=== PATIENT | female | born 1950 | race Caucasian/White ===

== ENCOUNTER → 2020-11-21 09:54 | Outpatient (CLI) | payer MEDICARE, OTHER, SELFPAY ==
--- NOTE | ~2020-11-21 | MM_ITS ---
EXAMINATION: MM screening [facility] BI w maryann HISTORY: Screening mammogram TECHNIQUE: Craniocaudal and mediolateral oblique 3-D tomosynthesis images were obtained and synthetic 2-D images were generated. CAD analysis was submitted and interpreted. COMPARISON: 11/16/2019, 10/13/2018, 10/11/2017 bilateral digital screening mammogram examinations BREAST PARENCHYMAL COMPOSITION: The breasts are almost entirely fatty. FINDINGS: There is no evidence of suspicious mass, calcification, or architectural distortion to sugg est malignancy in either breast. There has been no suspicious interval change. IMPRESSION: 1. No mammographic evidence of malignancy. 2. Recommend routine screening mammography in one year. BI-RADS Category 1: Negative Reviewed, dictated and finalized at location A. GE OPERATOR SLIP
== END ==
PROVIDERS: PCP Emergency Medicine; Visit Provider Emergency Medicine
DX: Z12.31 Encounter for screening mammogram for malignant neoplasm of breast (principal)
CPT/HCPCS: 77063; 77067

== ENCOUNTER → 2022-01-17 14:12 | Outpatient (CLI) | payer MEDICARE, OTHER, SELFPAY ==
--- NOTE | ~2022-01-17 | MM_ITS ---
EXAMINATION: MM screening de[facility] BI w maryann HISTORY: Screening TECHNIQUE: Craniocaudal and mediolateral oblique 3-D tomosynthesis images were obtained and synthetic 2-D images were generated. CAD analysis was submitted and interpreted. COMPARISON: Comparison to multiple prior studies sequentially, with oldest reviewed study dated 09/02. BREAST PARENCHYMAL COMPOSITION: There are scattered areas of fibroglandular density. FINDINGS: There is no evidence of suspicious mass, calcification, or architectural distortion to sugg est malignancy in either breast. There has been no suspicious interval change. IMPRESSION: 1. No mammographic evidence of malignancy. 2. Recommend routine screening mammography in one year. BI-RADS Category 1: Negative Reviewed, dictated and finalized at location A. N CLEANER
== END ==
PROVIDERS: PCP Emergency Medicine; Visit Provider Emergency Medicine
DX: Z12.31 Encounter for screening mammogram for malignant neoplasm of breast (principal)
CPT/HCPCS: 77063; 77067

== ENCOUNTER → 2023-01-18 10:00 | Outpatient (CLI) | payer MEDICARE, OTHER, SELFPAY ==
--- NOTE | ~2023-01-18 | MM_ITS ---
EXAMINATION: MM screening deirdre BI w maryann HISTORY: Screening mammogram TECHNIQUE: Craniocaudal and mediolateral oblique 3-D tomosynthesis images were obtained and synthetic 2-D images were generated. CAD analysis was submitted and interpreted. COMPARISON: January 17, 2022, November 21, 2020, November 16, 2019 bilateral screening mammogram exa minations BREAST PARENCHYMAL COMPOSITION: The breasts are almost entirely fatty. FINDINGS: There is no evidence of suspicious mass, calcification, or architectural distortion to sugg est malignancy in either breast. There has been no suspicious interval change. IMPRESSION: 1. No mammographic evidence of malignancy. 2. Recommend routine screening mammography in one year. BI-RADS Category 1: Negative Reviewed, dictated and finalized at location A. ITY ASSISTANT
== END ==
PROVIDERS: PCP Emergency Medicine; Visit Provider Emergency Medicine
DX: Z12.31 Encounter for screening mammogram for malignant neoplasm of breast (principal)
CPT/HCPCS: 77063; 77067

== ENCOUNTER → 2024-01-21 10:53 | Outpatient (CLI) | payer MEDICARE, OTHER, SELFPAY ==
--- NOTE | ~2024-01-21 | MM_ITS ---
EXAMINATION: MM screening deirdre BI w maryann HISTORY: Screening TECHNIQUE: Craniocaudal and mediolateral oblique 3-D tomosynthesis images were obtained and synthetic 2-D images were generated. CAD analysis was submitted and interpreted. COMPARISON: Comparison to multiple prior studies sequentially, with oldest reviewed study dated 10/02. BREAST PARENCHYMAL COMPOSITION: The breasts are almost entirely fatty. FINDINGS: There is no evidence of suspicious mass, calcification, or architectural distortion to sugg est malignancy in either breast. There has been no suspicious interval change. IMPRESSION: 1. No mammographic evidence of malignancy. 2. Recommend routine screening mammography in one year. BI-RADS Category 1: Negative Reviewed, dictated and finalized at location A. GE NURSE
== END ==
PROVIDERS: PCP Emergency Medicine; Visit Provider Emergency Medicine
DX: Z12.31 Encounter for screening mammogram for malignant neoplasm of breast (principal)
CPT/HCPCS: 77063; 77067

== ENCOUNTER 2024-05-28 09:51 | Outpatient (CLI) | payer MEDICARE, OTHER, SELFPAY ==
--- NOTE | ~2024-05-28 | XR_ITS ---
XR shoulder RT min 2V Ordering provider: Dequan Patino MD History: . M25.511 - Pain in right shoulder . Comparison: None. FINDINGS: BONES: No acute fracture or dislocation. JOINT SPACES: The acromioclavicular joint is normal. The glenohumeral joint is normal. SOFT TISSUES: Normal. IMPRESSION: No acute osseous abnormality right shoulder. Reviewed, dictated and finalized at location A.
== END 2024-05-28 09:52 ==
LOC: MICIMG 09:53
PROVIDERS: PCP Emergency Medicine; Visit Provider Emergency Medicine
DX: M25.511 Pain in right shoulder (principal)
CPT/HCPCS: 73030

== ENCOUNTER 2024-07-22 12:44 | Outpatient (CLI) | payer MEDICARE, OTHER, SELFPAY | END 2024-07-22 12:45 | disposition home or self-care (01) | PROVIDERS: PCP Emergency Medicine; Visit Provider Emergency Medicine | DX: H90.3 Sensorineural hearing loss, bilateral (principal) | CPT/HCPCS: 92557; 92567 ==

== ENCOUNTER 2024-08-26 15:26 | Outpatient (CLI) | payer MEDICARE, OTHER, SELFPAY ==
--- NOTE | ~2024-08-26 | US_ITS ---
EXAMINATION: US carotid duplex BI DATE: 08/26/2024 16:29 INDICATION: Vertigo TECHNIQUE: Grayscale, color Doppler, and pulsed Doppler images of the cervical carotid arteries were obtained. The degree of vessel stenosis is placed in one of the following categories: normal, <50%, 5 0-69%, >=70% but less than near-occlusion, near-occlusion, or total occlusion. Note that percent sten osis relative to normal distal artery lumen diameter is indirectly measured from velocity measurement s as described by Adama, et al. Radiology 2003; 229:340-346. COMPARISON: None. FINDINGS: RIGHT: The right common carotid artery (CCA) peak systolic velocity (PSV) is 95 cm/s. The right internal car otid artery (ICA) PSV is 114 cm/s. The right ICA end-diastolic velocity (EDV) is 20 cm/s. The right I CA/CCA PSV ratio is 1.2. Grayscale and color Doppler images yield an estimate of <50% diameter reduct ion from plaque in the ICA. The external carotid artery (ECA) PSV is 267 cm/s. There is antegrade amena w in the right vertebral artery. LEFT: The left CCA PSV is 166 cm/s. The left ICA PSV is 142 cm/s. The left ICA EDV is 14 cm/s. The left ICA /CCA PSV ratio is 0.9. Grayscale and color Doppler images yield an estimate of 50-69% diameter reduct ion from plaque in the ICA. The ECA PSV is 81 cm/s. There is antegrade flow in the left vertebral art maikel. IMPRESSION: 1. <50% stenosis in the right internal carotid artery. 2. 50-69% stenosis in the left internal carotid artery. Reviewed, dictated and finalized at location A.
== END 2024-08-26 15:27 | disposition home or self-care (01) ==
LOC: ANHIMG 15:28
PROVIDERS: PCP Emergency Medicine; Visit Provider Emergency Medicine
DX: R09.89 Other specified symptoms and signs involving the circulatory and respiratory systems (principal); I65.23 Occlusion and stenosis of bilateral carotid arteries
CPT/HCPCS: 93880

== ENCOUNTER 2024-09-18 15:40 | Outpatient (CLI) | payer MEDICARE, OTHER, SELFPAY ==
--- NOTE | ~2024-09-18 | US_ITS ---
US renal BI 09/18/2024 15:58 Procedure: Realtime transabdominal ultrasound of the kidneys and bladder. Indication: Chronic kidney disease stage III Comparison: No prior studies for comparison.8.9 cm and left kidney measures 8.6 cm. There is mild laura ateral hydronephrosis. Bladder within normal limits. Impression: 1: Mild bilateral hydronephrosis. Reviewed, dictated and finalized at location B. Impression: 1: Mild bilateral hydronephrosis.
== END 2024-09-18 15:41 | disposition home or self-care (01) ==
LOC: MICIMG 15:41
PROVIDERS: PCP Internal Medicine Nephrology; Visit Provider Internal Medicine Nephrology
DX: N18.32 Chronic kidney disease, stage 3b (principal)
CPT/HCPCS: 76775

== ENCOUNTER 2024-09-29 09:49 | Outpatient (CLI) | payer MEDICARE, OTHER, SELFPAY ==
[2024-09-29 10:32] LABS: Basophils Absolute Auto 0.1 K/mm3 (0.0-0.1); Basophils Percent Auto 0.8 % (0.2-1.2); Eosinophils Absolute Auto 0.1 K/mm3 (0-0.3); Eosinophils Percent Auto 1.5 % (0-4.4); Hematocrit 29.1 % (37.0-47.0); Immature Granulocyte Absolute 0.01 K/mm3 (0.00-0.031); Immature Granulocyte Percent A 0.1 % (0-0.5); Lymphocytes Absolute Auto 0.74 K/mm3 (0.9-3.2); Lymphocytes Percent Auto 10.4 % (18.3-44.2); Mean Corpuscular HGB Conc 30.9 g/dl (32-36); Mean Corpuscular Hemoglobin 31.3 pg (26-34); Mean Platelet Volume 11.5 fl (7.4-10.4); Monocytes Absolute Auto 0.4 K/mm3 (0.1-0.6); Neutrophils Absolute Auto 5.8 K/mm3 (1.3-6.7); Neutrophils Percent Auto 81.2 % (45.5-73.1); Platelet Count Result 178 k/mm3 (150-375); Red Blood Count 2.88 M/mm3 (4.2-5.4); Red Cell Distribution Width 15.4 % (11.5-14.5); White Blood Count 7.1 K/mm3 (4.5-10.0)
[2024-09-29 11:42] LABS: Iron 45 ug/dL (37-170)
[2024-09-29 11:44] LABS: Alanine Aminotransferase 22 U/L (6-35); Alkaline Phosphatase 149 U/L (38-126); Anion Gap 12 mmol/L (4-12); Aspartate Amino Transferase 43 U/L (14-36); Bilirubin,Total 0.8 mg/dL (0.2-1.3); Blood Urea Nitrogen 33 mg/dL (7-17); Calcium 9.4 mg/dL (8.4-10.2); Carbon Dioxide 20 mmol/L (22-30); Chloride 109 mmol/L (98-107); Estimated Glomerular Filt Rate 31; Glucose 129 mg/dL (65-110); Potassium 4.8 mmol/L (3.4-5.0); Sodium 141 mmol/L (137-145)
[2024-09-29 11:59] LABS: Percent Iron Saturation 12 % (20-50)
[2024-09-29 12:47] LABS: Folic Acid 7.9 ng/mL (2.76->20)
[2024-10-03 13:48] LABS: Methylmalonic Acid 248 nmol/L (69-390)
[2024-10-05 13:04] LABS: Soluble Transferrin Receptor 1.99 mg/L (0.76-1.76)
== END 2024-09-29 09:50 | disposition home or self-care (01) ==
LOC: ANHLAB 09:53
PROVIDERS: PCP Emergency Medicine; Visit Provider Internal Medicine Hematology & Oncology
DX: D64.9 Anemia, unspecified (principal)
CPT/HCPCS: 36415; 80053; 82607; 82728; 82746; 83540; 83550; 83921; 84238; 85025

== ENCOUNTER 2024-10-23 11:00 | Outpatient (RCR) | payer MEDICARE, OTHER, SELFPAY | END 2024-11-04 23:59 | disposition home or self-care (01) | LOC: ANHAUDASC 11:00 | PROVIDERS: PCP Emergency Medicine; Visit Provider Emergency Medicine | DX: Z46.1 Encounter for fitting and adjustment of hearing aid (principal) | CPT/HCPCS: 99199; V5261; V5264 ==

== ENCOUNTER 2025-01-25 10:46 | Outpatient (CLI) | payer MEDICARE, OTHER, SELFPAY ==
--- NOTE | ~2025-01-25 | MM_ITS ---
EXAMINATION: MM screening [facility] BI w maryann HISTORY: Screening mammogram TECHNIQUE: Craniocaudal and mediolateral oblique 3-D tomosynthesis images were obtained and synthetic 2-D images were generated. CAD analysis was submitted and interpreted. COMPARISON: 01/21/2024, 01/18/2023, 01/17/2022 BREAST PARENCHYMAL COMPOSITION:Not Dense. There are scattered areas of fibroglandular density. FINDINGS: No suspicious mass, calcification, or architectural distortion are identified in either delaney ast to suggest malignancy. There has been no suspicious interval change. IMPRESSION: No mammographic evidence of malignancy. Recommend routine screening mammography in one year. BI-RADS Category 1: Negative Reviewed, dictated and finalized at location . RUMENT AND CONTROL TECHNICIAN
== END 2025-01-25 10:47 | disposition home or self-care (01) ==
LOC: MICIMG 10:49
PROVIDERS: PCP Emergency Medicine; Visit Provider Emergency Medicine
DX: Z12.31 Encounter for screening mammogram for malignant neoplasm of breast (principal)
CPT/HCPCS: 77063; 77067

== ENCOUNTER 2025-01-29 13:15 | Outpatient (CLI) | payer MEDICARE, OTHER, SELFPAY ==
[2025-01-29 13:52] LABS: Hematocrit 27.3 % (37.0-47.0); Hemoglobin 8.4 g/dL (12.0-15.0); Mean Corpuscular HGB Conc 30.8 g/dl (32-36); Mean Corpuscular Hemoglobin 30.3 pg (26-34); Mean Corpuscular Volume 98.6 fl (80-100); Mean Platelet Volume 10.9 fl (7.4-10.4); Platelet Count Result 215 k/mm3 (150-375); Red Blood Count 2.77 M/mm3 (4.2-5.4); White Blood Count 8.1 K/mm3 (4.5-10.0)
[2025-01-29 14:13] LABS: Creatinine Urine 153.8 mg/dL; Total Protein Urine Random 11 mg/dL; Ur Ttl Prot Creatinine Ratio 0.07 mg/mg (0-0.20)
[2025-01-29 14:16] LABS: Parathyroid Intact 111.2 pg/mL (14.5-75.2)
[2025-01-29 14:39] LABS: Albumin Level 3.9 g/dL (3.5-5.1); Anion Gap 13 mmol/L (4-12); Blood Urea Nitrogen 23 mg/dL (7-17); Calcium 9.2 mg/dL (8.4-10.2); Carbon Dioxide 20 mmol/L (22-30); Chloride 106 mmol/L (98-107); Estimated Glomerular Filt Rate 37; Glucose 130 mg/dL (65-110); Iron 55 ug/dL (37-170); Phosphorus 3.6 mg/dL (2.5-4.5); Potassium 4.3 mmol/L (3.4-5.0); Sodium 139 mmol/L (137-145)
[2025-01-29 14:46] LABS: Percent Iron Saturation 15 % (20-50)
[2025-01-29 15:46] LABS: Folic Acid 7.9 ng/mL (2.76->20)
== END 2025-01-29 13:16 | disposition home or self-care (01) ==
PROVIDERS: PCP Emergency Medicine; Visit Provider Internal Medicine Nephrology
DX: I12.9 Hypertensive chronic kidney disease with stage 1 through stage 4 chronic kidney disease, or unspecified chronic kidney disease (principal); N18.32 Chronic kidney disease, stage 3b; D64.9 Anemia, unspecified
CPT/HCPCS: 36415; 80069; 82570; 82607; 82728; 82746; 83540; 83550; 83970; 84156; 85027

== ENCOUNTER 2025-02-06 13:09 | Outpatient (CLI) | payer MEDICARE, OTHER, SELFPAY ==
--- NOTE | ~2025-02-06 | XR_ITS ---
Clinical Indication: Chronic kidney disease PA and lateral views of the chest: Comparison: None Findings: Small left pleural effusion and possible minimal right pleural effusion present.. Cardiome diastinal silhouette is within normal limits. There is kyphosis of the thoracic spine with multiple m ild compression deformities of the mid thoracic spine. Impression: Small left pleural effusion and possible minimal right pleural effusion. Kyphosis with multiple mid thoracic spine compression deformities. Reviewed, dictated and finalized at location . Impression: Small left pleural effusion and possible minimal right pleural effusion. Kyphosis with multiple mid thoracic spine compression deformities.
--- OUTSIDE RECORDS SUMMARY | 2025-02-06 13:15 | XMS_ITS | Continuity of Care Document ---
Author Organization [facility] Address [address] [address] [place] [address] Phone Care Team Providers Care Printing Supplies Sales Representative Name Role Phone Cedric Danielle MD Unavailable Unavailable Allergies, Adverse Reactions, Alerts Substance Reaction Status Criticality Sulfa (Sulfonamide Antibiotics) Active No Information Penicillins Active No Information codeine Active No Information Medications Medication Instructions Dosage Effective Dates (start - stop) Status Comments omeprazole 20 mg capsule,delayed release take 1 capsule by oral route every day before a meal 20 MG - Active Norvasc 10 mg tablet take 1 tablet by oral route every day 10 MG - Active lisinopril 40 mg tablet take 1 tablet by oral route every day 40 MG - Active hydrochlorothiazide 12.5 mg tablet take 1 tablet by oral route every day 12.5 MG - Active atenolol 25 mg tablet take 1 tablet by oral route every day 25 MG - Active allopurinol 100 mg tablet take 2 tablet by oral route every day 200 MG - Active Vitamin D2 50,000 unit capsule take 1 capsule by oral route every week - Active Procedures Procedure Date OFFICE/OUTPATIENT VISIT, EST OFFICE/OUTPATIENT VISIT, EST OFFICE/OUTPATIENT VISIT, EST PPPS, initial visit OFFICE/OUTPATIENT VISIT, NEW Advance Directives Directive Yes / No Effective Date File Name No Information Encounters Encounter Description Practice Location Reason(s) For Visit Diagnoses Date Provider Providers Copied on Encounter [facility], [facility] [employer] [facility] [place] [id number], [place] tel:[phone] [facility] No Information 9 Shashi Steele. [address], [place], [place], [address] , [place]. tel:[phone] [facility], [address], [place], [place], [address], [place] tel:[phone] [facility] No Information 9 Shashi Steele. [address], [address], [place], [place], [address] , [place]. tel:[phone] OFFICE/OUTPA TIENT VISIT, [facility], [address], [place], [place], [address], [place] tel:[phone] [facility] glucose (chief complaint) d (chief complaint) renal (chief complaint) LFT (chief complaint) Essential (primary) hypertensionGoutRen al diseaseVitamin D deficiency, unspecifiedHypergly cemiaLiver disease 9 Shashi Steele. [address], [place], [place], [address] , [place]. tel:[phone] Referring Provider: Michele [address] [place], [address]. tel:[phone] OFFICE/OUTPA TIENT VISIT, [facility] ([place], [address], [place], [place], [address], [place] tel:[phone] [facility] HTN (chief complaint) GERD1 (chief complaint) gout1 (chief complaint) renal disease (chief complaint) GoutRenal diseaseEssential (primary) hypertensionLiver diseaseGERD w/o esophagitis 9 Shashi Steele. [address], [address], [place], [place], [address] , [place]. tel:[phone] Referring Provider: Michele [address], [place], [place], [address]. tel:[phone] OFFICE/OUTPA TIENT VISIT, [facility] ([place], [address], [place], [place], [address], tel:[phone] [facility] Medicine HTN (chief complaint) GERD1 (chief complaint) gout1 (chief complaint) renal1 (chief complaint) LFT1 (chief complaint) GERD w/o esophagitisEssentia l (primary) hypertensionGoutLiv er diseaseRenal disease 8 Shashi Steele. [address], [place], [place], [address] , [place]. tel:[phone] Referring Provider: Michele [address], [place], [place], [address]. tel:[phone] OFFICE/OUTPA TIENT VISIT, [facility], [address], [place], [place], [address], tel:[phone] [facility] Physical (chief complaint) Essential (primary) hypertensionGERD w/o esophagitisGoutBody mass index (BMI) 39.0-39.9, adultEncounter for general adult medical exam w abnormal findings 8 Shashi Steele. [address], [place], [place], [address] , [place]. tel:[phone] Referring Provider: Michele Mack [address] [facility], [place], [place], [address]. tel:[phone] Family History Family Member Type Diagnosis Age At Onset Mother Problem (finding) of 70 of CAD (Caus e Of ) Father Problem (finding) unknown CA 45 Brother Problem (finding) DM related issue (Cause Of ) 62 Payers Payer name Insurance type Covered democrat ID Authoriza tion(s) No Information Social History Type Description Quantity Date Captured Comments Sex Female Smoking Status No Information Chief Complaint And Reason For Visit No Information Plan Of Treatment Date Type Action Status Goal Special diet education compl eted Goal Tobacco cessation counseling completed Goal Special diet education compl eted Goal Tobacco cessation counseling completed Goal Special diet education compl eted Goal Tobacco cessation counseling completed Goal Special diet education compl eted Referral Ordered: CT THORAX W/O DYE ordered Referral Ordered: MAMMOGRAM, SCREENING ordered Referral Ordered: DXA BONE DENSITY, AXIAL ordered History Of Present Illness Encounter Date Complaint History Of Prese nt Illness LFT Her LFT is elsi l Hepatitis normal. Pt denies any abd pain or jaundice. Pt has mildly elevated alk phos renal Pt has stage iii renal disease but renal function is stable and actually better than last year. Pt has normal UO d Pt has low D Pt does not want bone density. Pt denies any fx glucose Pt has borderlin e high glucose Pt denies any polyuria, polydipsia renal disease Pt has normal UO . Pt denies any flank pain gout1 Pt has history o f gout Pt takes allopurinol and she has not had any gout attack for several years GERD1 Pt has chronic G ERD. Pt takes omeprazole and doing ok. Pt failed zantac Pt has daily GERD without omeprazole . Pt denies any abd pain or nausea or GBERD while on omeprazole HTN Pt has HTN Pt ta kes norvasc, HCTZ,, lisinopril and atenolol and her BP is stable Pt needs refill HTN Patient has hype rtension. Patient taking lisinopril, amlodipine, hydrochlorothiazide and atenolol. Her blood pressure stable. Patient denies any chest pain or headache. LFT1 Patient has mild ly elevated liver function test. Patient denies any abdominal pain. Patient denies any jaundice. renal1 Patient has mild high glucose with normal A1c and low renal function. Patient has normal urine output. Patient denies any polyuria polydipsia. gout1 Patient has gout . Patient takes allopurinol daily. Patient has not had gout for 2 years. GERD1 Patient has GERD . Patient take omeprazole daily. Patient failed Zantac and that she has daily GERD symptoms without omeprazole. Physical Pt needs annual physical Pt has HTn. Pt takes, lisinopril, HCTZ, Norvasc and also atenolol and her BP is stable. Pt has history of gout. Pt takes allopurinol and she has not had any gout attack for more than one year. Pt also has chronic GERD. Pt takes omeprazole daily. Pt denies any nausea, vomiting and GERD symptoms while on omeprazole. Pt failed zantac. Pt tried without omeprazole but her GERD is too severe without PPI .Pt denies any new complaints Instructions Date Instruction Additional Infor mation Elevate head of bed prior to sle ep. Related to GERD w/o esophagitis Eat smaller meals, n o eating three hours prior to bedtime. Related to GERD w/o esophagitis Avoid provocative fo ods: citrus, alcohol, coffee, chocolate, mints. Related to GERD w/o esophagitis Special diet education Related t o Body mass index (BMI) 38.0-38.9, adult Follow a low sodium diet. Relate d to Essential (primary) hypertension Increase activity. Related to Es sential (primary) hypertension Weight management Related to Gou t Increase physical activity Relat ed to Gout Special diet education Related t o Body mass index (BMI) 38.0-38.9, adult Elevate head of bed prior to sle ep. Related to GERD w/o esophagitis Eat smaller meals, n o eating three hours prior to bedtime. Related to GERD w/o esophagitis Avoid provocative fo ods: citrus, alcohol, coffee, chocolate, mints. Related to GERD w/o esophagitis Special diet education Related t o Body mass index (BMI) 39.0-39.9, adult Follow a low sodium diet. Relate d to Essential (primary) hypertension Special diet education Related t o Body mass index (BMI) 39.0-39.9, adult Increase activity. Related to Es sential (primary) hypertension Assessments Type Assessment Date No Information
--- OUTSIDE RECORDS SUMMARY | 2025-02-06 13:15 | XMS_ITS | Encounter Summary ---
Author Organization [facility] Address [address] [place] [address] Care Team Providers Care Lab Scientist Name Role Phone Dequan Patino MD Primary Care Provider [phone] Encounter Details Date Type Department Care Team (Late st Contact Info) Description 02/05/2025 External Device Data [facility] ABSTRACTION Provider, Abstract NO ADDRESS ON FILE Social History Tobacco Use Types Packs/Day Years Used Date Smoking Tobacco: Former Cigarettes 1 43 Q uit: 09/29/2009 Smokeless Tobacco: Never Alcohol Use Standard Drinks/Week Comments Never 0 (1 standard drink = 0.6 oz pur e alcohol) Comments Unknown Sex and Gender Information Value Date Recorded Sex Assigned at Not on file Legal Sex Female 12:16 PM CDT Gender Identity Not on file Sexual Orientation Not on file documented as of this encounter Plan of Treatment Not on file documented as of this encounter Visit Diagnoses Not on filedocumented in this encounter Care Teams Lab Scientist Relationship Specialty Start Date End Date Dequan Patino MD [address] [place] [address] PCP - General Internal Medicine 09/29/24 documented as of this encounter
--- OUTSIDE RECORDS SUMMARY | 2025-02-06 13:15 | XMS_ITS | Clinical Summary ---
Author Organization [facility] Alirio [facility] Address [address] [place] [address] Care Team Providers Care Sound Art Instructor Name Role Phone Dequan Patino MD Primary Care Provider [phone] Allergies Active Allergy Reactions Criticality Noted Date Comments Codeine Unknown 09/29/2024 Patient does not remeber Nsaids (Non-Steroidal Anti-Inflammatory Drug) Other (See Comments) 09/29/2024 Patient received a shot for gout , cheeks got red and stomach felt like it was on fire Penicillins Rash Low 09/29/2024 Sulphrin Unknown 09/29/2024 Patient is unsure Medications hydrALAZINE (APRESOLINE) 50 mg tablet Take 50 mg by mouth 2 times daily. Active hydrALAZINE (APRESOLINE) 25 mg tablet Take 25 mg by mouth 2 times daily. Active allopurinoL (ZYLOPRIM) 100 mg tablet Take 100 mg by mouth 2 times daily. Active omeprazole (PriLOSEC) 20 mg Capsule, Delayed Release(E.C.) Take 20 mg by mouth daily. Active atenoloL (TENORMIN) 25 mg tablet Take 25 mg by mouth daily. Active AMLODIPINE BENZOATE ORAL Take 10 mg by mouth daily. Active Cholecalciferol, Vitamin D3, 50 mcg (2,000 unit) Capsule Take by mouth. Active aspirin (ECOTRIN EC) 81 mg Tablet, Delayed Release (E.C.) Take 81 mg by mouth daily. Active vit A/C/E ac/ZnOx/cupric oxide (EYE VITAMIN AND MINERALS ORAL) Take by mouth. Active sodium bicarbonate 650 mg tablet Take 650 mg by mouth 2 times daily. Active Active Problems No known active problems Encounters Date Type Department Care Team Description 02/05/2025 External Device Data [facility] ABSTRACTION Provider, Abstract 02/04/2025 Telephone [facility] Oncology and Hematology - [facility] [address] [place] [address] Lazaro Jeter MD labs for appt 02/02/2025 External Device Data [facility] ABSTRACTION Provider, Abstract 01/19/2025 External Device Data [facility] ABSTRACTION Provider, Abstract 12/24/2024 External Device Data [facility] ABSTRACTION Provider, Abstract 12/23/2024 External Device Data [facility] ABSTRACTION Provider, Abstract 12/22/2024 External Device Data [facility] ABSTRACTION Provider, Abstract 12/15/2024 External Device Data [facility] ABSTRACTION Provider, Abstract from Last 3 Months Family History Medical History Relation Name Comments Cancer Brother 1 Heart Disease Brother 2 Cancer Father Heart Disease Mother Relation Name Status Comments Brother 1 Brother 2 Alive Father Mother Social History Tobacco Use Types Packs/Day Years Used Date Smoking Tobacco: Former Cigarettes 1 43 Q uit: 09/29/2009 Smokeless Tobacco: Never Tobacco Cessation:Counseling Given: Not Answered Alcohol Use Standard Drinks/Week Comments Never 0 (1 standard drink = 0.6 oz pur e alcohol) Comments Unknown Sex and Gender Information Value Date Recorded Sex Assigned at Not on file Legal Sex Female 12:16 PM CDT Gender Identity Not on file Sexual Orientation Not on file Last Filed Vital Signs Vital Sign Reading Time Taken Comments Blood Pressure 132/60 10/21/2024 3:33 PM ASBESTOS SURVEYOR Pulse 81 10/21/2024 3:33 PM ASBESTOS SURVEYOR Temperature 36.7 C (98 F) 10/21/2024 3:33 PM ASBESTOS SURVEYOR Respiratory Rate 16 10/21/2024 3:33 PM ASBESTOS SURVEYOR Oxygen Saturation 96% 10/21/2024 3:33 PM ASBESTOS SURVEYOR Inhaled Oxygen Concentration - - Weight 89.8 kg (198 lb) 10/21/2024 3:33 PM ASBESTOS SURVEYOR Height 157.5 cm (5' 2 ) 09/29/2024 9:05 AM CDT Body Mass Index 36.21 09/29/2024 9:05 AM CDT Plan of Treatment Health Maintenance Due Date Last Done Comments DTAP/TDAP/TD VACCINES (1 - Tdap) 1968 Traditional Medicare (ACO) Annual Wellness Visit 08/03 COLORECTAL SCREENING 1994 Colorectal Cancer Screening 1994 FIT-DNA Q 3 years 1994 FIT/FOBT Q 1 year 1994 Flex Sig/CT Colonography Q 5 years 1994 PNEUMOCOCCAL VACCINE 50+ YEARS (1 of 1 - PCV) 08/03/19 99 ZOSTER VACCINE (1 of 2) 1999 OSTEOPOROSIS SCREENING 2014 INFLUENZA VACCINE (#1) 2024 RSV VACCINE (60+ or ) (1 - 1-dose 75+ series) 2024 Insurance MEDICARE [employer] Care Teams Sound Art Instructor Relationship Specialty Start Date End Date Dequan Patino MD [address] [place] [address] PCP - General Internal Medicine 09/29/24
== END 2025-02-06 13:10 | disposition home or self-care (01) ==
PROVIDERS: PCP Emergency Medicine; Visit Provider Internal Medicine Nephrology
DX: N18.32 Chronic kidney disease, stage 3b (principal); E21.1 Secondary hyperparathyroidism, not elsewhere classified; J90 Pleural effusion, not elsewhere classified
CPT/HCPCS: 71046

== ENCOUNTER 2025-05-10 13:58 | Outpatient (CLI) | payer MEDICARE, OTHER, SELFPAY ==
[2025-05-10 14:41] LABS: Creatinine Urine 41.3 mg/dL; Total Protein Urine Random 8 mg/dL; Ur Ttl Prot Creatinine Ratio 0.19 mg/mg (0-0.20)
[2025-05-10 14:45] LABS: Hematocrit 21.5 % (37.0-47.0); Mean Corpuscular HGB Conc 29.3 g/dl (32-36); Mean Corpuscular Hemoglobin 28.6 pg (26-34); Mean Corpuscular Volume 97.7 fl (80-100); Mean Platelet Volume 10.9 fl (7.4-10.4); Platelet Count Result 213 k/mm3 (150-375); Red Cell Distribution Width 16.1 % (11.5-14.5); White Blood Count 7.2 K/mm3 (4.5-10.0)
[2025-05-10 14:50] LABS: Albumin Level 3.8 g/dL (3.5-5.1); Anion Gap 10 mmol/L (4-12); Blood Urea Nitrogen 37 mg/dL (7-17); Calcium 9.1 mg/dL (8.4-10.2); Carbon Dioxide 22 mmol/L (22-30); Chloride 105 mmol/L (98-107); Estimated Glomerular Filt Rate 26; Glucose 157 mg/dL (65-110); Phosphorus 3.9 mg/dL (2.5-4.5); Potassium 4.2 mmol/L (3.4-5.0); Sodium 137 mmol/L (137-145)
[2025-05-10 15:01] LABS: Parathyroid Intact 148.2 pg/mL (14.5-75.2)
[2025-05-10 15:06] LABS: Hemoglobin 6.3 g/dL (12.0-15.0)
--- OUTSIDE RECORDS SUMMARY | 2025-05-10 15:18 | XMS_ITS | Continuity of Care Document ---
Author Organization [facility] Address [address] [address] [place] [address] Phone Care Team Providers Care Supervisor Mixing Name Role Phone Cedric Danielle MD Unavailable Unavailable Allergies, Adverse Reactions, Alerts Substance Reaction Status Criticality Sulfa (Sulfonamide Antibiotics) Active No Information Penicillins Active No Information codeine Active No Information Medications Medication Instructions Dosage Effective Dates (start - stop) Status Comments allopurinol 100 mg tablet take 2 tablet by oral route every day 200 MG - Active atenolol 25 mg tablet take 1 tablet by oral route every day 25 MG - Active hydrochlorothiazide 12.5 mg tablet take 1 tablet by oral route every day 12.5 MG - Active lisinopril 40 mg tablet take 1 tablet by oral route every day 40 MG - Active Norvasc 10 mg tablet take 1 tablet by oral route every day 10 MG - Active omeprazole 20 mg capsule,delayed release take 1 capsule by oral route every day before a meal 20 MG - Active Vitamin D2 50,000 unit capsule take 1 capsule by oral route every week - Active Procedures Procedure Date OFFICE/OUTPATIENT VISIT, EST OFFICE/OUTPATIENT VISIT, EST OFFICE/OUTPATIENT VISIT, EST PPPS, initial visit OFFICE/OUTPATIENT VISIT, NEW Advance Directives Directive Yes / No Effective Date File Name No Information Encounters Encounter Description Practice Location Reason(s) For Visit Diagnoses Date Provider Providers Copied on Encounter [facility], [facility] [employer] [facility] [place], [id number], [place] tel:[phone] [facility] No Information 9 Shashi Steele. [address], [place], [place], [address] , [place]. tel:[phone] [facility], [address], [place], [place], [id number], [place] tel:[phone] [facility] No Information 9 Shashi Steele. [address], [place], [place], [address] , [place]. tel:[phone] OFFICE/OUTPA TIENT VISIT, [facility], [address], [place], [place], [address], [place] tel:[phone] [facility] glucose (chief complaint) d (chief complaint) renal (chief complaint) LFT (chief complaint) Essential (primary) hypertensionGoutRen al diseaseVitamin D deficiency, unspecifiedHypergly cemiaLiver disease 9 Shashi Steele. [address], [place], [place], [address] , [place]. tel:[phone] Referring Provider: Michele Mack [address] [place], [id number]. tel:[phone] OFFICE/OUTPA TIENT VISIT, [facility], [address], [place], [place], [id number], [place] tel:[phone] [facility] HTN (chief complaint) GERD1 (chief complaint) gout1 (chief complaint) renal disease (chief complaint) GoutRenal diseaseEssential (primary) hypertensionLiver diseaseGERD w/o esophagitis 9 Shashi Steele. [address], [place], [place], [address] , [place]. tel:[phone] Referring Provider: Michele [address], [place], [place], [id number]. tel:[phone] OFFICE/OUTPA TIENT VISIT, [facility], [address], [place], [place], [id number], tel:[phone] [facility] HTN (chief complaint) GERD1 (chief complaint) gout1 (chief complaint) renal1 (chief complaint) LFT1 (chief complaint) GERD w/o esophagitisEssentia l (primary) hypertensionGoutLiv er diseaseRenal disease 8 Shashi Steele. [address], [place], [place], [address] , [place]. tel:[phone] Referring Provider: Michele [address], [place], [place], [id number]. tel:[phone] OFFICE/OUTPA TIENT VISIT, [facility], [place], [facility], [address], [place], [place], [id number], tel:[phone] [facility] Physical (chief complaint) Essential (primary) hypertensionGERD w/o esophagitisGoutBody mass index (BMI) 39.0-39.9, adultEncounter for general adult medical exam w abnormal findings 8 Shashi Steele. [address], [place], [place], [address] , [place]. tel:[phone] Referring Provider: Michele Mack [address] [facility] [address], [place], [place], [address]. tel:[phone] Family History Family Member Type Diagnosis Age At Onset Mother Problem (finding) of 70 of CAD (Caus e Of ) Father Problem (finding) unknown [place] 45 Brother Problem (finding) DM related issue (Cause Of ) 62 Payers Payer name Insurance type Covered constitution party ID Authoriza tion(s) No Information Social History Type Description Quantity Date Captured Comments Sex Female Smoking Status No Information Chief Complaint And Reason For Visit No Information Plan Of Treatment Date Type Action Status Goal Tobacco cessation counseling completed Goal Special diet education compl eted Goal Special diet education compl eted Goal [...] new complaints Instructions Date Instruction Additional Infor leobardo Follow a low sodium diet. Relate d to Essential (primary) hypertension Increase activity. Related to Es sential (primary) hypertension Elevate head of bed prior to sle ep. Related to GERD w/o esophagitis Eat smaller meals, n o eating three hours prior to bedtime. Related to GERD w/o esophagitis Avoid provocative fo ods: citrus, alcohol, coffee, chocolate, mints. Related to GERD w/o esophagitis Special diet education Related t o Body mass index (BMI) 38.0-38.9, adult Weight management Related to Gou t Increase [...]
--- OUTSIDE RECORDS SUMMARY | 2025-05-10 15:18 | XMS_ITS | Clinical Summary ---
Author Organization [facility]io [facility] Address [address] [place] [address] Care Team Providers Care Grating Machine Operator Name Role Phone Dequan Patino MD Primary Care Provider [phone] Allergies Active Allergy Reactions Criticality Noted Date [...] Encounters Date Type Department Care Team Description 04/27/2025 External Device Data ST[facility] ABSTRACTION Provider, Abstract 04/22/2025 External Device Data [facility] ABSTRACTION Provider, Abstract 04/21/2025 External Device Data [facility] ABSTRACTION Provider, Abstract 04/20/2025 External Device Data [facility] ABSTRACTION Provider, Abstract 02/17/2025 External Device Data [facility] ABSTRACTION Provider, Abstract [...] Comments Blood Pressure 132/60 10/21/2024 3:33 PM LICENSING REGISTRATION EXAMINER Pulse 81 10/21/2024 3:33 PM LICENSING REGISTRATION EXAMINER Temperature 36.7 C (98 F) 10/21/2024 3:33 PM LICENSING REGISTRATION EXAMINER Respiratory Rate 16 10/21/2024 3:33 PM LICENSING REGISTRATION EXAMINER Oxygen Saturation 96% 10/21/2024 3:33 PM LICENSING REGISTRATION EXAMINER Inhaled Oxygen Concentration - - Weight 89.8 kg (198 lb) 10/21/2024 3:33 PM LICENSING REGISTRATION EXAMINER Height 157.5 cm (5' 2) 09/29/2024 9:05 AM CDT Body Mass Index 36.21 09/29/2024 9:05 AM CDT Plan of Treatment Health Maintenance Due Date Last Done Comments DTAP/TDAP/TD VACCINES (1 - Tdap) 1968 COLORECTAL SCREENING 1994 Colorectal Cancer Screening 1994 FIT-DNA Q 3 years 1994 FIT/FOBT Q 1 year 1994 Flex Sig/CT Colonography Q 5 years 1994 PNEUMOCOCCAL VACCINE 50+ YEARS (1 of 1 - PCV) 08/03/19 99 ZOSTER VACCINE (1 of 2) 1999 OSTEOPOROSIS SCREENING 2014 INFLUENZA VACCINE (#1) 2024 RSV VACCINE (60+ or ) (1 - 1-dose 75+ series) 2024 Insurance MEDICARE [employer] Care Teams Grating Machine Operator Relationship Specialty Start Date End Date Dequan Patino MD [address] [facility] [address] [place] [id number] PCP - General Internal Medicine 09/29/24
[2025-05-10 15:30] LABS: Vitamin D 25 Hydroxy 88.4 ng/mL
== END 2025-05-10 13:59 | disposition home or self-care (01) ==
PROVIDERS: PCP Emergency Medicine; Visit Provider Internal Medicine Nephrology
DX: N18.32 Chronic kidney disease, stage 3b (principal); E21.1 Secondary hyperparathyroidism, not elsewhere classified
CPT/HCPCS: 36415; 80069; 82306; 82570; 83970; 84156; 85027

== ENCOUNTER 2025-05-18 11:40 | Outpatient (CLI) | payer MEDICARE, OTHER, SELFPAY ==
[2025-05-18 12:03] LABS: Basophils Absolute Auto 0.1 K/mm3 (0.0-0.1); Basophils Percent Auto 0.8 % (0.2-1.2); Eosinophils Absolute Auto 0.1 K/mm3 (0-0.3); Eosinophils Percent Auto 1.8 % (0-4.4); Hematocrit 29.9 % (37.0-47.0); Immature Granulocyte Absolute 0.02 K/mm3 (0.00-0.031); Immature Granulocyte Percent A 0.3 % (0-0.5); Mean Corpuscular HGB Conc 30.1 g/dl (32-36); Mean Corpuscular Hemoglobin 28.2 pg (26-34); Mean Corpuscular Volume 93.7 fl (80-100); Mean Platelet Volume 9.4 fl (7.4-10.4); Monocytes Absolute Auto 0.5 K/mm3 (0.1-0.6); Monocytes Percent Auto 7.3 % (2.6-8.5); Neutrophils Absolute Auto 5.7 K/mm3 (1.3-6.7); Neutrophils Percent Auto 78.8 % (45.5-73.1); Platelet Count Result 165 k/mm3 (150-375); Red Blood Count 3.19 M/mm3 (4.2-5.4); Red Cell Distribution Width 16.6 % (11.5-14.5); White Blood Count 7.3 K/mm3 (4.5-10.0)
--- OUTSIDE RECORDS SUMMARY | 2025-05-18 12:38 | XMS_ITS | Clinical Summary ---
Author Organization [facility] Alirio prince [place] Address [address] [place] [address] Care Team Providers Care Labor Operator Name Role Phone Dequan Patino MD Primary Care Provider [phone] Allergies Active Allergy Reactions Criticality Noted Date [...] Take 25 mg by mouth daily. Active Cholecalciferol, Vitamin D3, 50 mcg (2,000 unit) Capsule Take 2,000 Units by mouth daily. Active aspirin (ECOTRIN EC) 81 mg Tablet, Delayed Release (E.C.) Take 81 mg by mouth daily. Active vit A/C/E ac/ZnOx/cupric oxide (EYE VITAMIN AND MINERALS ORAL) Take 1 Capsule by mouth 2 times daily. Active sodium bicarbonate 650 mg tablet Take 650 mg by mouth 2 times daily. Active furosemide (LASIX) 40 mg tablet Take 40 mg by mouth daily. Active amLODIPine (NORVASC) 10 mg tablet Take 10 mg by mouth daily. Active ferrous sulfate 325 mg (65 mg iron) tablet Take 1 Tablet (325 mg) by mouth daily. 30 Tablet 5 06/12/20 25 Active AMLODIPINE BENZOATE ORAL Take 10 mg by mouth daily. 05/11/20 25 Discontinu ed(Duplica te Therapy) Active Problems Problem Noted Date Diagnosed Date Iron deficiency anemia secondary to blood loss ( chronic) 05/12/2025 Chronic anemia 05/11/2025 Iron deficiency 05/11/2025 Stage 3b chronic kidney disease 05/11/2025 HTN (hypertension), benign 05/11/2025 Gout 05/11/2025 GERD (gastroesophageal reflux disease) Peripheral edema 05/11/2025 Anemia 05/11/2025 Encounters Date Type Department Care Team Description 5 Results [facility] G[facility]enterology [facility] [address] [facility] [address] [place] [phone] Ravindra Jolly MD PATHOLOGY 5 10:13 AM CDT Anesthesia Event [facility] [address] [phone] Miguel Angel Lemus MD 5 9:40 AM CDT - 5 10:20 AM CDT Surgery [facility] [address] [phone] Ravindra Jolly MD ESOPHAGOGASTRODUODENOSCOPY 5 4:29 PM CDT - 5 5:07 PM CDT Hospital Encounter [facility] Oncology [address] [place] [phone] Donald Vegas MD Khan, Mafaza, MD Kroeger, Ryan L, DO Wang, Edward, MD Anemia Discharge Disposition: Home or Self Care 5 Travel 5 External Device Data STL ABSTRACTION Provider, Abstract 5 External Device Data STL ABSTRACTION Provider, Abstract 5 External Device Data STL ABSTRACTION Provider, Abstract 5 External Device Data STL ABSTRACTION Provider, Abstract External Device Data STL ABSTRACTION Provider, Abstract [...] drink = 0.6 oz pur e alcohol) Feeling Safe Answer Date Recorded Are you in a relationship wi th someone who hurts you emotionally and/or physically? No 05/13/2025 Food Insecurity Answer Date Recorded Patient needs follow up regardin 05/11/2025 Transportation Needs Answer Date Record ed Patient needs follow up regardin 05/11/2025 Utility Needs Answer Date Recorded Patient needs follow up regardin 05/11/2025 Comments No Sex and Gender Information Value Date Recorded Sex Assigned at Not on file Legal Sex Female 12:16 PM CDT Gender Identity Not on file Sexual Orientation Not on file Last Filed Vital Signs Vital Sign Reading Time Taken Comments Blood Pressure 120/48 05/13/2025 12:47 PM CDT Pulse 69 05/13/2025 12:47 PM CDT Temperature 36.5 C (97.7 F) 05/13/2025 12:47 PM CDT Respiratory Rate 17 05/13/2025 12:47 PM CDT Oxygen Saturation 97% 05/13/2025 12:47 PM CDT Inhaled Oxygen Concentration - - Weight 83.9 kg (185 lb) 05/11/2025 3:30 PM CDT Height 165.1 cm (5' 5) 05/11/2025 3:30 PM CDT Body Mass Index 30.79 05/11/2025 3:30 PM CDT Plan of Treatment Health Maintenance Due Date Last Done Comments DTAP/TDAP/TD VACCINES (1 - Tdap) 1968 Traditional Medicare (ACO) A nnual Wellness Visit 1968 FIT-DNA Q 3 years 1994 FIT/FOBT Q 1 year 1994 Flex Sig/CT Colonography Q 5 years 1994 PNEUMOCOCCAL VACCINE 50+ YEA RS (1 of 1 - PCV) 1999 ZOSTER VACCINE (1 of 2) 1999 OSTEOPOROSIS SCREENING 2014 INFLUENZA VACCINE (#1) 2024 RSV VACCINE (60+ or ) (1 - 1-dose 75+ series) 2024 COLORECTAL SCREENING 05/13/2035 05/13/2025, 05/13/20 Colorectal Cancer Screening 05/13/2035 Medical Devices Implanted Type Area Icicle Machine Operator Device Identifier Shelf Expiration Date Model / Serial / Lot Clip Endo Resolution 360 235cm [id number] - [id number] Implanted:Qty: 1 on 05/13/2025 by Ravindra Jolly MD at [facility] Clip N/A: Stomach [employer] [id number] 12/30/2027 [id number] / / [id number] Procedures Procedure Name Priority Date/Time Associated Diagnosis Comments COLONOSCOPY REPORT 05/13/2025 11:37 AM CDT UPPER ENDOSCOPY REPORT 11:32 AM CDT PATHOLOGY Pathology 05/13/2025 10:58 AM CDT COLONOSCOPY 05/13/2025 9:40 AM CDT ESOPHAGOGASTRODUODENOSCOPY 05/13 9:40 AM CDT CBC WITHOUT DIFFERENTIAL Routine 025 7:32 AM CDT BASIC METABOLIC PANEL Routine 05/13/2025 7:32 AM CDT HEMOGLOBIN AND HEMATOCRIT Timed Study 2024 12:28 PM CDT TRANSFUSE PACKED RED BLOOD CELLS Routine 05/12/2025 8:24 AM CDT PREPARE RED BLOOD CELLS Routine 05/12/20 25 6:21 AM CDT DIFFERENTIAL, MANUAL Routine 05/12/2025 3:03 AM CDT CBC WITH DIFFERENTIAL Routine 05/12/2025 3:03 AM CDT KAPPA/LAMBDA LIGHT CHAINS Routine 2024 3:03 AM CDT IMMUNOFIXATION Routine 05/12/2025 3:02 AM CDT BASIC METABOLIC PANEL Routine 05/12/2025 3:02 AM CDT LACTATE DEHYDROGENASE Routine 05/12/2025 3:02 AM CDT IMMUNOGLOBULINS IGG IGA IGM Routine 05/02 3:02 AM CDT PROTEIN ELECTROPHORESIS W/REFLEX,SERUM Routine 05/12/2025 3:02 AM CDT TRANSFUSE PACKED RED BLOOD CELLS Routine 05/11/2025 8:30 PM CDT PREPARE RED BLOOD CELLS Stat 05/11/20 25 6:26 PM CDT VERIFICATION BLOOD GROUP Stat 025 6:01 PM CDT Encounter for blood typing VITAMIN B12 AND FOLATE Routine 5:16 PM CDT HAPTOGLOBIN Stat 05/11/2025 5:16 PM CDT TYPE AND SCREEN Stat 05/11/2025 5:09 PM CDT TSH Stat 05/11/2025 5:09 PM CDT RETICULOCYTES Stat 05/11/2025 5:09 PM CDT DIFFERENTIAL, MANUAL Stat 05/11/2025 5:09 PM CDT IRON, TIBC, AND PERCENT SATURATION Stat 05/11/2025 5:09 PM CDT CBC WITH DIFFERENTIAL Stat 05/11/2025 5:09 PM CDT COMPREHENSIVE METABOLIC PANEL Stat 5:09 PM CDT CRITICAL CARE Routine 05/11/2025 4:53 PM CDT EKG 12-LEAD Stat 05/11/2025 3:27 PM CDT from Last 3 Months Results * COLONOSCOPY REPORT (05/13/2025 11:37 AM CDT) Narrative Procedure Note Ravindra Jolly MD - 05/13/2025 11:37 AM CDT [facility] Endoscopy Patient Name: Ashwini Anderson Procedure Date: 05/13/2025 Date of : 1950 Attending MD: Ravindra Jolly , , Procedure: Colonoscopy Indications: Iron deficiency anemia secondary to chronic blood loss Providers: Ravindra Jolly Referring MD: Medicines: See the Anesthesia note for documentation of the administered medications Complications: No immediate complications. Procedure: Informed consent was obtained for the procedure, including moderate sedation after risks were discussed. Based on the pre-procedure assessment, including review of the patient's medical history, medications, allergies, and review of systems, the patient was deemed to be an appropriate candidate for sedation. A timeout was performed. Continuous ECG monitoring, pulse oximetry, blood pressure monitoring, and direct observation were performed. The Colonoscope was introduced through the anus and advanced to the cecum, identified by appendiceal orifice and ileocecal valve. The quality of the bowel preparation was good. Estimated Blood Loss: Estimated blood loss: none. Findings: A few diverticula were found in the entire colon. The exam was otherwise normal throughout the examined colon. Impression: - Diverticulosis in the entire examined colon. - No specimens collected. Recommendation: No additional inpatient GI investigation. Monitor Hgb. Outpatient follow up to review polyp pathology. Ravindra Jolly, 05/13/2025 11:37:09 AM Number of Addenda: [address]; [place] [address] Ravindra Jolly MD GI PROCEDURE ORDERABLES Final Re sult * UPPER ENDOSCOPY REPORT (05/13/2025 11:32 AM CDT) Narrative Procedure Note Ravindra Jolly MD - 05/13/2025 11:32 AM CDT [facility] Endoscopy Patient Name: Ashwini Anderson Procedure Date: 05/13/2025 Date of : 1950 Attending MD: Ravindra Jolly , , Procedure: Upper GI endoscopy Indications: Iron deficiency anemia secondary to chronic blood loss Providers: Ravindra Jolly Referring MD: Medicines: See the Anesthesia note for documentation of the administered medications Complications: No immediate complications. Procedure: Informed consent was obtained for the procedure, including moderate sedation after risks were discussed. Based on the pre-procedure assessment, including review of the patient's medical history, medications, allergies, and review of systems, the patient was deemed to be an appropriate candidate for sedation. A timeout was performed. Continuous ECG monitoring, pulse oximetry, blood pressure monitoring, and direct observation were performed. The was introduced through the mouth, and advanced to the third part of duodenum. The upper GI endoscopy was accomplished without difficulty. Estimated Blood Loss: Estimated blood loss: none. Findings: The examined esophagus was normal. Multiple medium semi-pedunculated polyps with no bleeding and stigmata of recent bleeding were found in the gastric fundus. The polyps were removed with a hot snare. Resection and retrieval were complete. There was some oozing from one site post polypectomy treated with application of a hemostatic clip. The exam of the stomach was otherwise normal. The examined duodenum was normal. Impression: - Normal esophagus. - Multiple gastric polyps. Resected and retrieved. - Normal examined duodenum. Recommendation: - Await pathology results. - Perform a colonoscopy today. Ravindra Jolly, 05/13/2025 11:32:47 AM Number of Addenda: [address]; [place] [address] Ravindra Jolly MD GI PROCEDURE ORDERABLES Final Re sult * PATHOLOGY (05/13/2025 10:58 AM CDT) CASE REPORT Surgical Pathology R eport Case: [id number] Authorizing Provider: Ravindra Jolly MD Collected: 05/13/2025 10:58 AM Ordering Location: [facility] [address] Received: 05/13/2025 02:10 PM Pathologist: Connie Leong MD Specimen: Stomach, polyp x2 5 4:46 PM CDT [facility] FINAL DIAGNOSIS Stomach, polyps x 2, biopsy: - Hyperplastic polyps, 2. 5 4:46 PM CDT [facility] at 1646 CDT GROSS DESCRIPTION Received in one container labeled Ashwini Pedrozae and stomach polyps x 2 are 2 pieces of red-logan tissue measuring 1.0 and 1.9 cm in greatest dimension. The bases of the 2 polyps are differentially inked blue and black. Each piece is bisected and the tissue is entirely submitted in cassette A1. ELH 5 4:46 PM CDT [facility] MICROSCOPIC DESCRIPTION The slides are labeled [id number] and Ashwini Anderson. Sections show hyperplastic polyps with mild reactive changes, mixed inflammation and surface erosion with granulation tissue. There is no evidence of intestinal (goblet cell) metaplasia, dysplasia or malignancy. Immunohistochemical stain for Helicobacter pylori is negative. 5 4:46 PM CDT [facility] OPERATIVE PROCEDURE 1: Esophagogastroduodenoscop y 2: Colonoscopy 5 4:46 PM CDT [facility] CLINICAL INFORMATION A Gastric Polyps x2 5 4:46 PM CDT [facility] COMMENT Special stain, immunohistochemical, and/or in situ hybridization results are interpreted with controls that demonstrate appropriate staining reactions. Note on use of immunohistochemistry reagents and in situ hybridization probes: These tests were developed and their performance characteristics determined by [facility], Department of Laboratory Medicine. It has not been cleared or approved by the U.S. Food and Drug Administration. The FDA has determined that such clearance or approval is not necessary. The test is used for clinical purposes. It should not be regarded as investigational or for research. This laboratory is certified to perform high complexity testing. Frozen section/operating room consultation, gross examination and dissection, and case sign out may have been performed in part or completely in the following laboratories: [facility], CLIA #[id number] [address] [place] [address] [facility], [place] #[id number] [address] [place] [address] [facility], CLIA #[id number] [facility] [place] [address] This report was created with the [employer] voice-activated dictation system. Inherent to this system is the possibility of syntax, grammar, punctuation and other errors that could impact the interpretation of the report. If there are interpretative questions about aspects of this report, please contact the performing pathologist. 4:46 PM T [facility] Tissue ENTIRE STOMACH / Unknown Collection / Unknown 05/13/2025 10:58 AM CDT 05/13/2025 2:10 PM CDT Comment:Gastric Polyps x2 Ravindra Jolly MD PATHOLOGY/CYTOLOGY ORDERABLES Fi nal Result [id number] [address] [place] [address] * (ABNORMAL) CBC WITHOUT DIFFERENTIAL (05/13/2025 7:32 AM CDT) WBC 4.2 4.0 - 9.8 K/uL 05/13/2025 7:56 AM CDT [facility] RBC 2.69(L) 3.90 - 4.90 M/uL 05/13/2025 7:56 AM T [facility] HEMOGLOBIN 7.5(L) 11.8 - 14.8 g/dL 05/13/2025 7:56 AM CDT [facility] HEMATOCRIT 24.4(L) 35.5 - 44.0 % 05/13/2025 7:56 AM CDT [facility] MCV 90.7 82.0 - 99.0 fL 05/13/2025 7:56 AM CDT [facility] LABORATORY SERVICES - [facility] MCH 27.9 27.2 - 32.6 pg 05/13/2025 7:56 AM CDT [facility] LABORATORY SERVICES - . [facility] MCHC 30.7(L) 31.5 - 35.5 g/dL 05/13/2025 7:56 AM CDT [facility] LABORATORY SERVICES - . [facility] PLATELETS 140 140 - 350 K/uL 05/13/2025 7:56 AM CDT [facility] LABORATORY SERVICES - . [facility] MPV 11.2 9.3 - 12.4 fL 05/13/2025 7:56 AM CDT [facility] LABORATORY SERVICES - . [facility] RDW 16.8(H) 11.5 - 14.5 % 05/13/2025 7:56 AM CDT [facility] LABORATORY SERVICES - . [facility] RDW-STDEV 55.8(H) 37.1 - 48.7 fL 05/13/2025 7:56 AM T [facility] LABORATORY SERVICES - [facility] Blood Venipuncture / Unknown 05/13/2025 7:32 AM CDT 05/13/2025 7:38 AM CDT us Chon Hernandez MD HEMATOLOGY ORDERABLES Final Resu lt [facility] [employer] SERVICES [facility]# [id number] [facility] [place] [place] [address] * (ABNORMAL) BASIC METABOLIC PANEL (05/13/2025 7:32 AM CDT) Only the most recent of2 resultswithin the time period is included. SODIUM 136 136 - 145 mmol/L 05/13/2025 8:26 AM CDT [facility] LABORATORY SERVICES - . [facility] POTASSIUM 4.2 3.5 - 5.0 mmol/L 05/13/2025 8:26 AM T [facility] LABORATORY SERVICES - . [facility] CHLORIDE 102 98 - 107 mmol/L 05/13/2025 8:26 AM CDT [facility] LABORATORY SERVICES - . [facility] CO2 21(L) 22 - 29 mmol/L 05/13/2025 8:26 AM [facility] CALCIUM 8.9 8.6 - 10.2 mg/dL 05/13/2025 8:26 AM [facility] BUN 32(H) 8 - 23 mg/dL 05/13/2025 8:26 AM [facility] CREATININE 1.79(H) 0.51 - 0.95 mg/dL 05/13/2025 8:26 AM [facility] Comment:The GFR result is no t clinically significant on patients <18 or >70 years of age. GLUCOSE 87 74 - 99 mg/dL 05/13/2025 8:26 AM [facility] GFR 29 mL/min/1.7 3 sq meter 05/13/2025 8:26 AM [facility] Comment:eGFR calculated with 2020 CKD-EPI equation. Vegetarian diet, extremely high or low muscle mass, and may affect results. Cystatin C with Glomerular Filtration Rate is a suitable alternative for these patients. ANION GAP 13 8 - 16 mmol/L 05/13/2025 8:26 AM [facility] Blood Venipuncture / Unknown 05/13/2025 7:32 AM CDT 05/13/2025 7:38 AM CDT Chon Hernandez MD CHEMISTRY ORDERABLES Final Resul t [facility]# [id number] [facility] [place] [address] * (ABNORMAL) HEMOGLOBIN AND HEMATOCRIT (05/12/2025 12:28 PM CDT) HEMOGLOBIN 7.5(L) 11.8 - 14.8 g/dL 05/12/2025 2:41 PM T [facility] Comment:Significant change f rom prior result, correlate clinically and redraw if necessary. HEMATOCRIT 24.1(L) 35.5 - 44.0 % 05/12/2025 2:41 PM T [facility] Blood Venipuncture / Unknown 05/12/2025 12:28 PM CDT 05/12/2025 2:13 PM CDT Chon Hernandez MD HEMATOLOGY ORDERABLES Final Resu lt [facility] LABORATORY SERVICES - [facility] CLIA# [id number] [address] [place] [address] * TRANSFUSE RED BLOOD CELLS (05/12/2025 11:06 AM CDT) Only the most recent of2 resultswithin the time period is included. Justino Syed PA-C BLOOD TRANSFUSION ORDERA BLES Final Result * PREPARE RED BLOOD CELLS (05/12/2025 6:21 AM CDT) Only the most recent of2 resultswithin the time period is included. COMPONENT TYPE [id number] [facility] LABORATORY SERVICES -- .[facility] COMPONENT IDENTIFICATION [id number] [facility] LABORATORY SERVICES -- .[facility] UNIT ABO A [facility] LABORATORY SERVICES -- .[facility] UNIT RH POS [facility] LABORATORY SERVICES -- .[facility] CROSSMATCH Compatible [facility] LABORATORY SERVICES -- .[facility] COMPONENT STATUS Transfused [facility] LABORATORY SERVICES -- [facility] COMPONENT EXPIRATION DATE/TIME [id number] [facility] LABORATORY SERVICES -- [facility] COMPONENT CODING SYSTEM 6200 [facility] LABORATORY SERVICES -- [facility] VOLUME, BLOOD PRODUCT 350 [facility] LABORATORY SERVICES -- [facility] Other, specify 05/12/2025 6: 21 AM CDT Justino Syed PA-C LAB TRANSFUSION ORDERABL ES Edited Result - Final [facility] LABORATORY SERVICES -- [facility] CLIA# [id number] [address] [place] [address] * MANUAL DIFFERENTIAL (05/12/2025 3:03 AM CDT) Only the most recent of2 resultswithin the time period is included. Pathologist [facility] PLATELET EST. Consistent w Count 05/12/2025 6:28 AM CDT [facility] LABORATORY SERVICES - [facility] ANISOCYTOSIS 1+ /hpf 05/12/2025 6:28 AM CDT [facility] LABORATORY SERVICES - [facility] POIKILOCYTES 1+ /hpf 05/12/2025 6:28 AM CDT [facility] LABORATORY [facility] POLYCHROMASIA 1+ /hpf 05/12/2025 6:28 AM CDT [facility] LAB[facility]ATORY SERVICES - [facility] HYPOCHROMIA 1+ /hpf 05/12/2025 6:28 AM CDT [facility]ATORY SERVICES - [facility] OVALOCYTES 1+ /hpf 05/12/2025 6:28 AM CDT [facility] LABORATORY SERVICES - [facility] Blood Venipuncture / Unknown 05/12/2025 3:03 AM CDT 05/12/2025 4:39 AM CDT Susan Santos NP HEMATOLOGY ORDERABLES COM Final Result [facility] SERVICES [facility] CLIA# [id number] [address] [place] [address] * (ABNORMAL) KAPPA/LAMBDA, FREE LIGHT CHAINS (05/12/2025 3:03 AM CDT) Pathologist [facility] KAPPA FREE LIGHT CHAIN 88.5(H) 3.3 - 19.4 mg/L 05/13/2025 12:18 PM CDT [facility] FREE LIGHT CHAIN 35.5(H) 5.7 - 26.3 mg/L 05/13/2025 12:18 PM CDT [facility] ST KAPPA/LAMBDA LIGHT CHAIN RATIO 2.49(H) 0.26 - 1.65 05/13/2025 12:18 PM CDT [facility] Comment: Free kappa/lambda ratio in serum of normal individuals is 0.26-1.65. Excess production of free kappa or lambda chains can alter this ratio. Monoclonal free light chains are found in serum of patients with multiple myeloma, Waldenstrom's macroglobulinemia, mu-heavy chain disease, primary amyloidosis, light chain deposition disease, monoclonal gammopathy of undetermined significance, and lymphoproliferative disorders. Measurement of free light chain concentration in serum is useful for diagnosis, prognosis, monitoring disease activity and following response to therapy of these disorders. Blood Venipuncture / Unknown 05/12/2025 3:03 AM CDT 05/12/2025 4:39 AM CDT Narrative [facility] - 05/13/2025 12:18 PM CDT Performing Organization Information: Site ID: [place] Name: [facility] Address: [address] [place] [address] [address] Director: Tonny Luna MD us Susan Santos NP CHEMISTRY ORDERABLES Final Result [facility] [phone] * (ABNORMAL) CBC WITH DIFFERENTIAL (05/12/2025 3:03 AM CDT) Only the most recent of2 resultswithin the time period is included. WBC 3.5(L) 4.0 - 9.8 K/uL 05/12/2025 6:11 AM CDT [facility] LABORATORY SERVICES [facility] RBC 2.13(L) 3.90 - 4.90 M/uL 05/12/2025 6:11 AM T [facility] LABORATORY SERVICES [facility] HEMOGLOBIN 6.1(LL) 11.8 - 14.8 g/dL 05/12/2025 6:11 AM T [facility] LABORATORY SERVICES [facility] Comment:Verified by repeat a nalysis. HEMATOCRIT 20.4(L) 35.5 - 44.0 % 05/12/2025 6:11 AM CDT [facility] LABORATORY SERVICES [facility] MCV 95.8 82.0 - 99.0 fL 05/12/2025 6:11 AM CDT [facility] LABORATORY SERVICES [facility] MCH 28.6 27.2 - 32.6 pg 05/12/2025 6:11 AM CDT [facility] LABORATORY SERVICES [facility] MCHC 29.9(L) 31.5 - 35.5 g/dL 05/12/2025 6:11 AM CDT [facility] LABORATORY SERVICES - [facility] RDW 16.1(H) 11.5 - 14.5 % 05/12/2025 6:11 AM CDT [facility] LABORATORY SERVICES - [facility] RDW-STDEV 56.9(H) 37.1 - 48.7 fL 05/12/2025 6:11 AM CDT [facility] LABORATORY SERVICES - [facility] PLATELETS 134(L) 140 - 350 K/uL 05/12/2025 6:11 AM [employer] [facility] LABORATORY SERVICES - [facility] MPV 11.3 9.3 - 12.4 fL 05/12/2025 6:11 AM [employer] [facility] LABORATORY SERVICES - . [facility] NEUTROPHILS 72 % 05/12/2025 6:11 AM [employer] [facility] LABORATORY SERVICES - . [facility] LYMPHOCYTES 18 % 05/12/2025 6:11 AM [employer] [facility] LABORATORY SERVICES - . [facility] MONOCYTES 7 % 05/12/2025 6:11 AM [employer] [facility] LABORATORY SERVICES - . [facility] EOSINOPHILS 2 % 05/12/2025 6:11 AM [employer] [facility] LABORATORY SERVICES - . [facility] BASOPHILS 1 % 05/12/2025 6:11 AM [employer] [facility] LABORATORY SERVICES - . [facility] IMMATURE GRANULOCYTES 0 % 05/12/2025 6:11 AM CDT [facility] LABORATORY SERVICES - . [facility] NEUTROPHIL ABSOLUTE 2.52 1.90 - 7.00 K/uL 05/12/2025 6:11 AM [employer] [facility] LABORATORY SERVICES - . [facility] LYMPHOCYTE ABSOLUTE 0.62(L) 0.70 - 4.50 K/uL 05/12/2025 6:11 AM [employer] [facility] LABORATORY SERVICES - . [facility] MONOCYTE ABSOLUTE 0.26 0.10 - 1.30 K/uL 05/12/2025 6:11 AM [employer] [facility] LABORATORY SERVICES - . [facility] EOSINOPHIL ABSOLUTE 0.07 0.00 - 0.70 K/uL 05/12/2025 6:11 AM [employer] [facility] LABORATORY SERVICES - . [facility] BASOPHILS ABSOLUTE 0.02 0.00 - 0.20 K/uL 05/12/2025 6:11 AM [employer] LABORATORY SERVICES - . [facility] IMMATURE GRANULOCYTES ABSOLUTE 0.01 0.00 - 0.03 K/uL 05/12/2025 6:11 AM [facility] LABORATORY SERVICES - . [facility] Blood Venipuncture / Unknown 05/12/2025 3:03 AM CDT 05/12/2025 4:39 AM CDT Susan Santos PYTHON CONSULTANT HEMATOLOGY ORDERABLES Melly l Result [facility] CLIA# [id number] [address] [place] [address] * IMMUNOFIXATION (05/12/2025 3:02 AM CDT) [facility] IMMUNOFIXATION INTERP See Interpretation Below 05/17/2025 3:58 PM CDT [facility] LABORATORY ST. [facility] Comment:Normal polyclonal im munoglobulins INTERPRETED BY: Kat Sands DO 05/17/2025 3:58 PM CDT [facility] Blood Venipuncture / Unknown 05/12/2025 3:02 AM CDT 05/12/2025 4:38 AM CDT Susan Santos PYTHON CONSULTANT CHEMISTRY ORDERABLES Final Result Performing Organization Address City/[facility]/ZIP Co de Phone Number [facility] CLIA # [id number] [address] [address] * IMMUNOGLOBULINS IGG IGA IGM (05/12/2025 3:02 AM CDT) [facility] IGG 1,072 700 - 1,600 mg/dL 05/12/2025 10:59 AM CDT [facility] IGA 167 70 - 400 mg/dL 05/12/2025 10:59 AM CDT [facility] IGM 58 40 - 230 mg/dL 05/12/2025 10:59 AM CDT [facility] Comment: [facility]formed by [facility]: [address], [place] [address]. Blood Venipuncture / Unknown 05/12/2025 3:02 AM CDT 05/12/2025 4:38 AM CDT Susan Santos NP CHEMISTRY ORDERABLES Final Result [facility] MELISSA# [id number] [address] [facility] [address] [place] [address] * (ABNORMAL) PROTEIN ELECTROPHORESIS W/REFLEX,SERUM (05/12/2025 3:02 AM CDT) Pathologist [facility] TOTAL PROTEIN 5.6(L) 6.4 - 8.3 g/dL 05/17/2025 3:58 PM CDT [facility] ALBUMIN SPE 2.97(L) 3.50 - 5.20 g/dL 05/17/2025 3:58 PM CDT [facility] ALPHA 1 GLOBULIN SPE 0.36 0.21 - 0.45 g/dL 05/17/2025 3:58 PM CDT [facility] ALPHA 2 GLOBULIN SPE 0.71 0.50 - 1.01 g/dL 05/17/2025 3:58 PM CDT [facility] BETA GLOBULIN 0.65 0.60 - 1.06 g/dL 05/17/2025 3:58 PM CDT [facility] GAMMA GLOBULIN 0.92 0.60 - 1.33 g/dL 05/17/2025 3:58 PM CDT [facility] SPE INTERP See Interpretation Below 05/17/2025 3:58 PM CDT [facility] Comment:No monoclonal protei n identified. Immunofixation is performed due to a possible abnormal migration in the gamma region-see separate report. INTERPRETED BY: Kat Sands DO 05/17/2025 3:58 PM CDT [facility] Blood Venipuncture / Unknown 05/12/2025 3:02 AM CDT 05/12/2025 4:38 AM CDT Narrative [facility] - 05/17/2025 3:58 PM CDT Immunofixation ordered at [facility] per policy per pathologist. Susan Santos PYTHON CONSULTANT CHEMISTRY ORDERABLES Final Result [facility] CLIA # [id number] [address] [facility] [place] [address] * LACTATE DEHYDROGENASE (05/12/2025 3:02 AM CDT) LD (LACTATE DEHYDROGENASE) 156 135 - 214 U/L 05/12/2025 5:26 AM CDT [facility] Blood Venipuncture / Unknown 05/12/2025 3:02 AM CDT 05/12/2025 4:38 AM CDT Susan Santos PYTHON CONSULTANT CHEMISTRY ORDERABLES Final Result Performing Organization Address City/[facility]/ZIP Co de Phone Number [facility] CLIA# [id number] [address] [place] [address] * VERIFICATION BLOOD GROUP (05/11/2025 6:01 PM CDT) Pathologist [facility] ABO GROUP A 05/11/2025 7:01 PM CDT [facility] RH (D) TYPE Positive 05/11/2025 7:01 PM CDT [facility] Blood Venipuncture / Unknown 05/11/2025 6:01 PM CDT 05/11/2025 6:15 PM CDT Vivek Prabhakar MD BLOOD BANK ORDERABLES Final Result [facility] CLIA# [id number] [address] [place] [address] * VITAMIN B12 AND FOLATE (05/11/2025 5:16 PM CDT) VITAMIN B12 589 232 - 1,245 pg/mL 05/12/2025 12:51 AM CDT [facility] Comment:It has been reported that between 5 to 10% of patients with values between 200 and 400 pg/mL may experience neuropsychiatric and hematologic abnormalities due to occult B12 deficiency. Less than 1% of patients with values above 400 pg/mL will have symptoms. FOLATE, SERUM 9.2 >4.5 ng/mL 05/12/2025 12:51 AM CDT [facility] Blood Venipuncture / Unknown 05/11/2025 5:16 PM CDT 05/11/2025 5:33 PM CDT Susan Santos NP CHEMISTRY ORDERABLES Final Result Performing Organization Address [facility]/ZIP Co de Phone Number [facility] CLIA# [id number] [address] [place] [address] * HAPTOGLOBIN (05/11/2025 5:16 PM CDT) HAPTOGLOBIN 172 30 - 200 mg/dL 05/11/2025 6:21 PM CDT [facility] Blood Venipuncture / Unknown 05/11/2025 5:16 PM CDT 05/11/2025 5:33 PM CDT Donald Vegas MD CHEMISTRY ORDERABLES Final Resul t [facility] CLIA# [id number] [address] [place] [address] * (ABNORMAL) IRON, TIBC, AND PERCENT SATURATION (05/11/2025 5:09 PM CDT) IRON 20(L) 37 - 145 ug/dL 05/11/2025 6:04 PM CDT [facility] TIBC 390 250 - 450 ug/dL 05/11/2025 6:04 PM CDT [facility] IRON % SATURATION 5(L) 15 - 50 % 05/11/2025 6:04 PM CDT [facility] TRANSFERRIN 307 200 - 360 mg/dL 05/11/2025 6:04 PM CDT [facility] Blood Venipuncture / Unknown 05/11/2025 5:09 PM CDT 05/11/2025 5:12 PM CDT Donald Vegas MD CHEMISTRY ORDERABLES Final Resul t [facility] CLIA# [id number] [address] [place] [address] * (ABNORMAL) RETICULOCYTES (05/11/2025 5:09 PM CDT) RETICULOCYTES 3.3(H) 0.7 - 2.9 % 05/11/2025 6:39 PM CDT [facility] IMMATURE RETIC FRACTION 31.6(H) 3.0 - 18.0 % 05/11/2025 6:39 PM CDT [facility] RETICULOCYTE, ABSOLUTE 0.0700 10e6/uL 05/11/2025 6:39 PM CDT [facility] Blood Venipuncture / Unknown 05/11/2025 5:09 PM CDT 05/11/2025 5:12 PM CDT Susan Santos NP HEMATOLOGY ORDERABLES Melly l Result [facility] CLIA# [id number] [address] [place] [address] * TYPE AND SCREEN (05/11/2025 5:09 PM CDT) ABO GROUP A 05/11/2025 6:55 PM CDT [facility] RH (D) TYPE Positive 05/11/2025 6:55 PM CDT [facility] -- .[facility] ANTIBODY SCREEN Negative 05/11/2025 6:55 PM CDT [facility] Blood Venipuncture / Unknown 05/11/2025 5:09 PM CDT 05/11/2025 5:12 PM CDT Donald Vegas MD BLOOD BANK ORDERABLES Edited Res ult - Final [facility] CLIA# [id number] [address] [place] [address] * TSH (05/11/2025 5:09 PM CDT) TSH 1.87 0.27 - 4.20 uIU/mL 05/11/2025 7:34 PM CDT [facility] Blood Venipuncture / Unknown 05/11/2025 5:09 PM CDT 05/11/2025 5:12 PM CDT Susan Santos PYTHON CONSULTANT CHEMISTRY ORDERABLES Final Result Performing Organization Address City/[facility]/ZIP Co de Phone Number [facility] [id number] [address] [place] [address] * (ABNORMAL) COMPREHENSIVE METABOLIC PANEL (05/11/2025 5:09 PM CDT) SODIUM 137 136 - 145 mmol/L 05/11/2025 6:04 PM CDT [facility] - . [facility] POTASSIUM 4.5 3.5 - 5.0 mmol/L 05/11/2025 6:04 PM CDT [facility] - . [facility] CHLORIDE 103 98 - 107 mmol/L 05/11/2025 6:04 PM CDT [facility] - . [facility] CO2 21(L) 22 - 29 mmol/L 05/11/2025 6:04 PM CDT [facility] SERVICES - [facility] CALCIUM 9.1 8.6 - 10.2 mg/dL 05/11/2025 6:04 PM [facility] BUN 38(H) 8 - 23 mg/dL 05/11/2025 6:04 PM [facility] CREATININE 1.87(H) 0.51 - 0.95 mg/dL 05/11/2025 6:04 PM [facility] Comment:The GFR result is no t clinically significant on patients <18 or >70 years of age. GLUCOSE 109(H) 74 - 99 mg/dL 05/11/2025 6:04 PM [facility] TOTAL PROTEIN 6.8 6.7 - 8.6 g/dL 05/11/2025 6:04 PM [facility] ALBUMIN 3.9 3.5 - 5.2 g/dL 05/11/2025 6:04 PM [facility] BILIRUBIN TOTAL 0.7 0.0 - 1.1 mg/dL 05/11/2025 6:04 PM [facility] ALKALINE PHOSPHATASE 167(H) 35 - 104 U/L 05/11/2025 6:04 PM [facility] AST 35(H) <33 U/L 05/11/2025 6:04 PM [facility] ALT 16 <34 U/L 05/11/2025 6:04 PM [facility] GFR 28 mL/min/1.7 3 sq meter 05/11/2025 6:04 PM [facility] Comment:eGFR calculated with 2020 CKD-EPI equation. Vegetarian diet, extremely high or low muscle mass, and may affect results. Cystatin C with Glomerular Filtration Rate is a suitable alternative for these patients. ANION GAP 13 8 - 16 mmol/L 05/11/2025 6:04 PM [facility] Blood Venipuncture / Unknown 05/11/2025 5:09 PM CDT 05/11/2025 5:12 PM CDT Narrative [facility] - 05/11/2025 6:04 PM CDT Samples containing indocyanine green cause interferences on Total and/or Direct Bilirubin and must not be measured. Donald Vegas MD CHEMISTRY ORDERABLES Final Resul t [facility] CLIA# [id number] [address] [facility] [place] [address] * Critical Care (05/11/2025 4:53 PM CDT) Narrative Donald Vegas MD - 05/11/2025 4:53 PM CDT Donald Vegas MD 05/11/2025 11:07 PM Critical Care Performed by: Donald Vegas MD Authorized by: Donald Vegas MD Critical care provider statement: Critical care time (minutes): 35 Critical care time was exclusive of: Separately billable procedures and treating other patients Critical care was necessary to treat or prevent imminent or life-threatening deterioration of the following conditions: Anemia requiring transfusion. Critical care was time spent personally by me on the following activities: Development of treatment plan with patient or surrogate, ordering and performing treatments and interventions, ordering and review of laboratory studies, discussions with consultants, evaluation of patient's response to treatment, re-evaluation of patient's condition, review of old charts, examination of patient and obtaining history from patient or surrogate I assumed direction of critical care for this patient from another provider in my specialty: no Care discussed with: admitting provider Donald Vegas MD PROCEDURE/MINOR SURGICAL ORDERAB LES Final Result * EKG 12-LEAD (05/11/2025 3:27 PM CDT) 05/11/2025 3:27 PM CDT 91 Wireless INTERFACE SYSTEM - 05/11/2025 6:11 PM CDT [facility] [address] , [place] [address] Test Date: 2025-05-11 Pat Name: ASHWINI ANDERSON Department: 38 Room: Gender: Female Clinical Technician: [id number] : 1950 Requested By: Order Number: [id number] Reading MD: Arnaldo Fernandez Measurements Intervals [place] Rate: 82 P: 44 LA: 156 QRS: -14 QRSD: 94 T: 28 QT: 372 QTc: 435 Interpretive Statements Sinus rhythm Low voltage, precordial leads LVH by voltage Baseline wander in lead(s) V1 Electronically Signed On 05-11-2025 18:11:38 CDT by Arnaldo Fernandez Procedure Note Arnaldo Fernandez MD - 05/11/2025 [facility] [address] [place] [address] Test Date: 2025-05-11 Pat Name: ASHWINI ANDERSON Department: 38 Room: Gender: Female Clinical Technician: [id number] : 1950 Requested By: Order Number: [id number] Reading : Arnaldo Fernandez Measurements Intervals [place] Rate: 82 P: 44 LA: 156 QRS: -14 QRSD: 94 T: 28 QT: 372 QTc: 435 Interpretive Statements Sinus rhythm Low voltage, precordial leads LVH by voltage Baseline wander in lead(s) V1 Electronically Signed On 05-11-2025 18:11:38 CDT by Arnaldo Fernandez us Protocol [facility] Emergency MD ECG ORDERABLES Melly l Result INTERFACE SYSTEM Refer to clinic/hospital department from Last 3 Months Insurance MEDICARE 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
--- OUTSIDE RECORDS SUMMARY | 2025-05-18 12:38 | XMS_ITS | Encounter Summary ---
Author Organization [facility] Address [address] [place] [address] Care Team Providers Care Trackwalker Name Role Phone Dequan Patino MD Primary Care Provider [phone] Encounter Details Date Type Department Care Team (Late st Contact Info) Description 05/15/2025 Results Follow-Up [facility] Gastroenterology [facility] [address] [facility] [address] [place] [address] Ravindra Jolly MD [address] [place] [address] PATHOLOGY Social History Tobacco Use Types Packs/Day Years [...] on file documented as of this encounter Miscellaneous Notes * Result Encounter Note - Ravindra Jolly MD - 05/15/2025 10:20 AM CDT I called Ms. Ashwini Anderson with gastric polyp pathology--hyperplastic. No additional follow up needed unless anemia recurs. documented in this encounter Plan of Treatment Not on file documented as of this encounter Visit Diagnoses Not on filedocumented in this encounter Care Teams Trackwalker Relationship Specialty Start Date End Date Dequan Patino MD [address] [place] [phone] PCP - General Internal Medicine 09/29/24 documented as of this encounter
--- OUTSIDE RECORDS SUMMARY | 2025-05-18 12:38 | XMS_ITS | Continuity of Care Document ---
Author Organization [facility] Address [address] [place] [address] [place] [address] Phone Care Team Providers Care Coal Wheeler Name Role Phone Cedric Danielle MD Unavailable [...] Diagnoses Date Provider Providers Copied on Encounter [facility], [facility] [employer] [facility] [place], [id number], [place] tel:[phone] [facility] No Information [address]. [address], [address], [place], [place], [address] , [place]. tel:[phone] [facility], [address], [place], [place], [address], [place] tel:[phone] [facility] No Information 9 Shasih [address]. [address], [address], [place], [place], [address] , [place]. tel:[phone] OFFICE/OUTPA TIENT VISIT, [facility], [address], [place], [place], [id number], [place] tel:[phone] [facility] glucose (chief complaint) d (chief complaint) renal (chief complaint) LFT (chief complaint) Essential (primary) hypertensionGoutRen al diseaseVitamin D deficiency, unspecifiedHypergly cemiaLiver disease 9 Shashi [address]. [address], [place], [place], [address] , [place]. tel:[phone] Referring Provider: Michele [address] [place], [id number]. tel:[phone] OFFICE/OUTPA TIENT VISIT, [facility], [address], [place], [place], [address], [place] tel:[phone] [facility] HTN (chief complaint) GERD1 (chief complaint) gout1 (chief complaint) renal disease (chief complaint) GoutRenal diseaseEssential (primary) hypertensionLiver diseaseGERD w/o esophagitis 9 Shashi Steele. [address], [address], [place], [place], [address] , [place]. tel:[phone] Referring Provider: Michele [address], [place], [place], [address]. tel:[phone] OFFICE/OUTPA TIENT VISIT, [facility], [address], [place], [place], [address], tel:[phone] [facility] Medicine HTN (chief complaint) GERD1 (chief complaint) gout1 (chief complaint) renal1 (chief complaint) LFT1 (chief complaint) GERD w/o esophagitisEssentia l (primary) hypertensionGoutLiv er diseaseRenal disease 8 Shashi Steele. [address], [address], [place], [place], [address] , [place]. tel:[phone] Referring Provider: Michele [address], [place], [place], [address]. tel:[phone] OFFICE/OUTPA TIENT VISIT, [facility], [address], [place], [place], [address], tel:[phone] [facility] Physical (chief complaint) Essential (primary) hypertensionGERD w/o esophagitisGoutBody mass index (BMI) 39.0-39.9, adultEncounter for general adult medical exam w abnormal findings 8 Shashi Steele. [address], [address], [place], [place], [address] , [place]. tel:[phone] Referring Provider: Michele Mack [address] [facility] [address], [place], [place], [address]. tel:[phone] Family History Family Member Type Diagnosis Age At Onset Mother Problem (finding) of 70 of CAD (Caus e Of ) Father Problem (finding) unknown [place] 45 Brother Problem (finding) DM related issue (Cause Of ) 62 Payers Payer name Insurance type Covered republican ID Authoriza tion(s) No Information Social History Type Description Quantity Date Captured Comments Sex Female Smoking Status No Information Chief Complaint And Reason For Visit No Information Plan Of Treatment Date Type Action Status Goal Special diet education compl eted Goal Tobacco cessation counseling completed Goal Tobacco cessation counseling completed Goal Special diet education compl eted Goal Special diet education compl eted Goal Tobacco cessation counseling completed Goal Special diet education compl eted Referral Ordered: CT THORAX W/O DYE ordered Referral Ordered: MAMMOGRAM, SCREENING ordered Referral Ordered: DXA BONE DENSITY, AXIAL ordered History Of Present Illness Encounter Date Complaint History Of Prese nt Illness glucose Pt has borderlin e high glucose Pt denies any polyuria, polydipsia d Pt has low D Pt does not want bone density. Pt denies any fx renal Pt has stage iii renal disease but renal function is stable and actually better than last year. Pt has normal UO LFT Her LFT is elsi l Hepatitis normal. Pt denies any abd pain or jaundice. Pt has mildly elevated alk phos HTN Pt has HTN Pt ta kes norvasc, HCTZ,, lisinopril and atenolol and her BP is stable Pt needs refill GERD1 Pt has chronic G ERD. Pt takes omeprazole and doing ok. Pt failed zantac Pt has daily GERD without omeprazole . Pt denies any abd pain or nausea or GBERD while on omeprazole gout1 Pt has history o f gout Pt takes allopurinol and she has not had any gout attack for several years renal disease Pt has normal UO . Pt denies any flank pain GERD1 Patient has GERD . Patient take omeprazole daily. Patient failed Zantac and that she has daily GERD symptoms without omeprazole. gout1 Patient has gout . Patient takes allopurinol daily. Patient has not had gout for 2 years. renal1 Patient has mild high glucose with normal A1c and low renal function. Patient has normal urine output. Patient denies any polyuria polydipsia. LFT1 Patient has mild ly elevated liver function test. Patient denies any abdominal pain. Patient denies any jaundice. HTN Patient has hype rtension. Patient taking lisinopril, amlodipine, hydrochlorothiazide and atenolol. Her blood pressure stable. Patient denies any chest pain or headache. Physical Pt needs annual physical Pt has [...] complaints Instructions Date Instruction Additional Infor leobardo Special diet education Related t o Body mass index (BMI) 38.0-38.9, adult Avoid provocative fo ods: citrus, alcohol, coffee, chocolate, mints. Related to GERD w/o esophagitis Eat smaller meals, n o eating three hours prior to bedtime. Related to GERD w/o esophagitis Elevate head of bed prior to sle ep. Related to GERD w/o esophagitis Increase activity. Related to Es sential (primary) hypertension Follow a low sodium diet. Relate d to Essential (primary) hypertension Special diet education Related t o Body mass index (BMI) 38.0-38.9, adult Increase physical activity Relat ed to Gout Weight management Related to Gou t Special diet education Related t o Body mass index (BMI) 39.0-39.9, adult Avoid provocative fo ods: citrus, alcohol, coffee, chocolate, mints. Related to GERD w/o esophagitis Eat smaller meals, n o eating three hours prior to bedtime. Related to GERD w/o esophagitis Elevate head of bed prior to sle ep. Related to GERD w/o esophagitis Increase activity. Related to Es sential (primary) hypertension Special diet education Related t o Body mass index (BMI) 39.0-39.9, adult Follow a low sodium diet. Relate d to Essential (primary) hypertension Assessments Type Assessment Date No Information
== END 2025-05-18 11:41 | disposition home or self-care (01) ==
LOC: ANHLAB 11:42
PROVIDERS: PCP Emergency Medicine; Visit Provider Emergency Medicine
DX: I10 Essential (primary) hypertension (principal)
CPT/HCPCS: 36415; 85025

== ENCOUNTER 2025-06-21 14:00 | Outpatient (CLI) | payer MEDICARE, OTHER, SELFPAY ==
--- OUTSIDE RECORDS SUMMARY | 2025-06-21 14:04 | XMS_ITS | Continuity of Care Document ---
Author Organization [facility] Address [address] [place] [address] [place] [address] Phone Care Team Providers Care Commercial Credit Reviewer Name Role Phone Cedric Danielle MD Unavailable [...] Diagnoses Date Provider Providers Copied on Encounter [facility], [place], [facility] [employer] [facility] [place], [id number], [place] tel:[phone] [facility], [place] No Information 9 Shashi Steele. [address], [place], [place], [address] , [place]. tel:[phone] [facility] [place], [address], [place], [place], [id number], [place] tel:[phone] [facility], [place] No Information 9 Shashi Steele. [address], [place], [place], [address] , [place]. tel:[phone] OFFICE/OUTPA TIENT VISIT, [facility], [address], [place], [place], [id number], [place] tel:[phone] [facility] [place] glucose (chief complaint) d (chief complaint) renal (chief complaint) LFT (chief complaint) Essential (primary) hypertensionGoutRen al diseaseVitamin D deficiency, unspecifiedHypergly cemiaLiver disease 9 Shashi Steele. [address], [place], [place], [address] , [place]. tel:[phone] Referring Provider: Michele Mack [address] [place], [address]. tel:[phone] OFFICE/OUTPA TIENT VISIT, [facility], [address], [place], [place], [id number], [place] tel:[phone] [facility] [place] HTN (chief complaint) GERD1 (chief complaint) gout1 (chief complaint) renal disease (chief complaint) GoutRenal diseaseEssential (primary) hypertensionLiver diseaseGERD w/o esophagitis 9 Shashi Steele. [address], [place], [place], [address] , [place]. tel:[phone] Referring Provider: Michele [address], [place], [place], [address]. tel:[phone] OFFICE/OUTPA TIENT VISIT, [facility], [address], [place], [place], [id number], tel:[phone] [facility] HTN (chief complaint) GERD1 (chief complaint) gout1 (chief complaint) renal1 (chief complaint) LFT1 (chief complaint) GERD w/o esophagitisEssentia l (primary) hypertensionGoutLiv er diseaseRenal disease 8 Shashi Steele. [address], [place], [place], [address] , [place]. tel:[phone] Referring Provider: Michele [address], [place], [place], [address]. tel:[phone] OFFICE/OUTPA TIENT VISIT, [facility], [address], [place], [place], [id number], tel:[phone] [facility] [place] Physical (chief complaint) Essential (primary) hypertensionGERD w/o esophagitisGoutBody mass index (BMI) 39.0-39.9, adultEncounter for general adult medical exam w abnormal findings 8 Shashi Steele. [address], [place], [place], [address] , [place]. tel:[phone] Referring Provider: Michele Mack [address] [facility] [address], [place], [place], [address]. tel:[phone] Family History Family Member Type Diagnosis Age [...] Special diet education compl eted Referral Ordered: DXA BONE DENSITY, AXIAL ordered Referral Ordered: MAMMOGRAM, SCREENING ordered Referral Ordered: CT THORAX W/O DYE ordered History Of Present Illness Encounter Date [...]
--- OUTSIDE RECORDS SUMMARY | 2025-06-21 14:04 | XMS_ITS | Encounter Summary ---
Author Organization [facility] Address [address] [place] [address] Care Team Providers Care Bacteriologist Food Name Role Phone Dequan Patino MD Primary Care Provider [phone] Encounter Details Date Type Department Care Team (Late st Contact Info) Description 05/15/2025 Results Follow-Up [facility] Gastroenterology [facility] [address] [place] [address] Ravindra Jolly MD [address] [place] [address] PATHOLOGY Social History Tobacco Use Types Packs/Day Years Used Date Smoking Tobacco: Former Cigarettes 1 43 Q uit: 09/29/2009 Smokeless Tobacco: Never Alcohol Use Standard Drinks/Week Comments Never 0 (1 standard drink = 0.6 oz pur e alcohol) Comments No Sex and Gender Information Value [...] on filedocumented in this encounter Care Teams Bacteriologist Food Relationship Specialty Start Date End Date Dequan Patino MD [address] [place] [address] PCP - General Internal Medicine 09/29/24 documented as of this encounter
--- OUTSIDE RECORDS SUMMARY | 2025-06-21 14:04 | XMS_ITS | Clinical Summary ---
Author Organization [facility] (Formerly [facility]) Alirio prince Danahaileycorby Address [address] [place] [address] Care Team Providers Care Power And Recovery Superintendent Name Role Phone Dequan Patino MD Primary Care Provider [phone] Allergies Active Allergy Reactions Criticality Noted Date [...] daily. 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 Chronic anemia 05/11/2025 Iron deficiency 05/11/2025 Stage 3b chronic kidney disease 05/11/2025 HTN (hypertension), benign 05/11/2025 Gout 05/11/2025 GERD (gastroesophageal reflux disease) Peripheral edema 05/11/2025 Anemia 05/11/2025 Encounters Date Type Department Care Team Description 5 External Device Data STL ABSTRACTION Provider, Abstract 5 External Device Data STL ABSTRACTION Provider, Abstract 5 External Device Data STL ABSTRACTION Provider, Abstract 5 External Device Data STL ABSTRACTION Provider, Abstract 5 External Device Data STL ABSTRACTION Provider, Abstract 5 External Device Data STL ABSTRACTION Provider, Abstract 5 External Device Data STL ABSTRACTION Provider, Abstract 5 Results Follow-Up [facility] (Formerly [facility]) Gastroenterology [facility] [address] [place] [address] Ravindra Jolly MD PATHOLOGY 5 10:13 AM CDT Anesthesia Event [facility] [id number] [place] [address] Miguel Angel Lemus MD 5 9:40 AM CDT - 5 10:20 AM CDT Surgery [facility] [address] [place] [address] Ravindra Jolly MD ESOPHAGOGASTRODUODENOSCOPY 5 4:29 PM CDT - 5 5:07 PM CDT Hospital Encounter [facility] Oncology [address] [place] [address] Donald Vegas MD Khan, Mafaza, MD Kroeger, Ryan L, Chon Mustafa MD Anemia Discharge Disposition: Home or Self [...] (1 of 2) 1999 OSTEOPOROSIS SCREENING 2014 RSV VACCINE (60+ or ) (1 - 1-dose 75+ series) 2024 INFLUENZA VACCINE (#1) 2025 COLORECTAL SCREENING 05/13/2035 05/13/2025, 05/13/20 Colorectal Cancer Screening 05/13/2035 Medical Devices Implanted Type Area Instructional Material Director Device Identifier Shelf Expiration Date Model / Serial / Lot Clip Endo Resolution 360 235cm [id number] - [id number] Implanted:Qty: 1 on 05/13/2025 by Ravindra Jolly MD at [facility] Clip N/A: Stomach [employer] [id number] 12/30/2027 [id number] / / [id number] Procedures Procedure Name Priority Date/Time Associated Diagnosis [...] CDT PREPARE RED BLOOD CELLS Routine 05/12/20 6:21 AM CDT DIFFERENTIAL, MANUAL Routine 05/12/2025 [...] Jolly MD - 05/13/2025 11:37 AM CDT [facility] Endoscopy Patient Name: Ashwini Anderson Procedure Date: [...] of Addenda: [address]; [place] [address] Ravindra Jolly MD GI PROCEDURE ORDERABLES Final Re sult * UPPER ENDOSCOPY REPORT (05/13/2025 11:32 AM CDT) Narrative Procedure Note Ravindra Jolly MD - 05/13/2025 11:32 AM CDT [facility] Endoscopy Patient Name: Ashwini Anderson Procedure Date: [...] 11:32:47 AM Number of Addenda: [address]; [place] [address] us Ravindra Jolly MD GI PROCEDURE ORDERABLES Final Re sult * PATHOLOGY (05/13/2025 10:58 AM CDT) CASE REPORT Surgical Pathology R eport Case: [id number] Authorizing Provider: Ravindra Jolly MD Collected: 05/13/2025 10:58 AM Ordering Location: [facility] GI [facility] [address] Received: 05/13/2025 02:10 PM Pathologist: Connie Leong MD Specimen: Stomach, polyp x2 5 4:46 PM CDT [facility] FINAL DIAGNOSIS Stomach, polyps x 2, biopsy: - Hyperplastic polyps, 2. 5 4:46 PM CDT [facility] at 1646 CDT GROSS DESCRIPTION Received in one container labeled Ashwini Anderson and stomach polyps x 2 are 2 pieces of red-logan tissue measuring 1.0 and 1.9 cm in greatest dimension. The bases of the 2 polyps are differentially inked blue and black. Each piece is bisected and the tissue is entirely submitted in cassette A1. ELH 5 4:46 PM CDT [facility] MICROSCOPIC DESCRIPTION The slides are labeled [id number] and Ashwini Anderson. Sections show hyperplastic polyps with mild reactive changes, mixed inflammation and surface erosion with granulation tissue. There is no evidence of intestinal (goblet cell) metaplasia, dysplasia or malignancy. Immunohistochemical stain for Helicobacter pylori is negative. 5 4:46 PM CDT [facility] OPERATIVE PROCEDURE 1: Esophagogastroduodenoscop y 2: Colonoscopy 5 4:46 PM CDT [facility] CLINICAL INFORMATION A Gastric Polyps x2 5 4:46 PM CDT [facility] COMMENT Special stain, immunohistochemical, and/or in situ hybridization results are interpreted with controls that demonstrate appropriate staining reactions. Note on use of immunohistochemistry reagents and in situ hybridization probes: These tests were developed and their performance characteristics determined by [facility], Department of Laboratory Medicine. It has not [...] part or completely in the following laboratories: [facility], CLIA #[id number] [address] [facility], [place] [address] [facility], CLIA #[id number] [address] [place] [address] [facility]/[place], CLIA #[id number] [address] [facility] [place] [address] This report was created with the [employer] voice-activated dictation system. Inherent to this system is the possibility of syntax, grammar, punctuation and other errors that could impact the interpretation of the report. If there are interpretative questions about aspects of this report, please contact the performing pathologist. 4:46 PM T [facility] LABOR[facility]ORY [facility] Tissue ENTIRE STOMACH / Unknown Collection / Unknown 05/13/2025 10:58 AM CDT 05/13/2025 2:10 PM CDT Comment:Gastric Polyps x2 Ravindra Jolly MD PATHOLOGY/CYTOLOGY ORDERABLES Fi nal Result [facility] CLIA# [id number] [address] [place] [address] * (ABNORMAL) CBC WITHOUT DIFFERENTIAL (05/13/2025 7:32 AM CDT) WBC 4.2 4.0 - 9.8 K/uL 05/13/2025 7:56 AM T [facility] RBC 2.69(L) 3.90 - 4.90 M/uL 05/13/2025 7:56 AM T [facility] HEMOGLOBIN 7.5(L) 11.8 - 14.8 g/dL 05/13/2025 7:56 AM [facility] HEMATOCRIT 24.4(L) 35.5 - 44.0 % 05/13/2025 7:56 AM [facility]. [facility] MCV 90.7 82.0 - 99.0 fL 05/13/2025 7:56 AM [facility]. [facility] MCH 27.9 27.2 - 32.6 pg 05/13/2025 7:56 AM CDT [facility] LABORATORY SERVICES - [facility] MCHC 30.7(L) 31.5 - 35.5 g/dL 05/13/2025 7:56 AM CDT [facility] LABORATORY SERVICES - [facility] PLATELETS 140 140 - 350 K/uL 05/13/2025 7:56 AM CDT [facility] LABORATORY SERVICES - [facility] MPV 11.2 9.3 - 12.4 fL 05/13/2025 7:56 AM CDT [facility] SERVICES - [facility] RDW 16.8(H) 11.5 - 14.5 % 05/13/2025 7:56 AM CDT [facility] LABORATORY SERVICES - . [facility] RDW-STDEV 55.8(H) 37.1 - 48.7 fL 05/13/2025 7:56 AM T [facility] LABORATORY SERVICES - [facility] Blood Venipuncture / Unknown 05/13/2025 7:32 AM CDT 05/13/2025 7:38 AM CDT us Chon Hernandez MD HEMATOLOGY ORDERABLES Final Resu lt [facility] SERVICES [facility]# [id number] [address] [facility] [place] [address] * (ABNORMAL) BASIC METABOLIC PANEL (05/13/2025 7:32 AM CDT) Only the most recent of2 resultswithin the time period is included. SODIUM 136 136 - 145 mmol/L 05/13/2025 8:26 AM CDT [facility] SERVICES - [facility] POTASSIUM 4.2 3.5 - 5.0 mmol/L 05/13/2025 8:26 AM CDT [facility] SERVICES - [facility] CHLORIDE 102 98 - 107 mmol/L 05/13/2025 8:26 AM CDT [facility] SERVICES - [facility] CO2 21(L) 22 - 29 mmol/L 05/13/2025 8:26 AM CDT [facility] LABORATORY SERVICES - . [facility] CALCIUM 8.9 8.6 - 10.2 mg/dL 05/13/2025 8:26 AM T [facility] BUN 32(H) 8 - 23 mg/dL 05/13/2025 8:26 AM [facility] CREATININE 1.79(H) 0.51 - 0.95 mg/dL 05/13/2025 8:26 AM [facility] Comment:The GFR result is no t clinically significant on patients <18 or >70 years of age. GLUCOSE 87 74 - 99 mg/dL 05/13/2025 8:26 AM [facility] GFR 29 mL/min/1.7 3 sq meter 05/13/2025 8:26 AM [facility] Comment:eGFR calculated with 2020 CKD-EPI equation. Vegetarian diet, extremely high or low muscle mass, and may affect results. Cystatin C with Glomerular Filtration Rate is a suitable alternative for these patients. ANION GAP 13 8 - 16 mmol/L 05/13/2025 8:26 AM [facility] Blood Venipuncture / Unknown 05/13/2025 7:32 AM CDT 05/13/2025 7:38 AM CDT Chon Hernandez MD CHEMISTRY ORDERABLES Final Resul t [facility]# [id number] [address] [place] [address] [place] [address] * (ABNORMAL) HEMOGLOBIN AND HEMATOCRIT (05/12/2025 12:28 PM CDT) Pathologist [facility] HEMOGLOBIN 7.5(L) 11.8 - 14.8 g/dL 05/12/2025 2:41 PM T [facility] Comment:Significant change f rom prior result, correlate clinically and redraw if necessary. HEMATOCRIT 24.1(L) 35.5 - 44.0 % 05/12/2025 2:41 PM T [facility] Blood Venipuncture / Unknown 05/12/2025 12:28 PM CDT 05/12/2025 2:13 PM CDT Chon Hernandez MD HEMATOLOGY ORDERABLES Final Resu lt [facility] LABORATORY SERVICES - [facility] CLAZEB# [id number] [address] [place] [address] * TRANSFUSE RED BLOOD CELLS (05/12/2025 11:06 AM CDT) Only the most recent of2 resultswithin the time period is included. Justino Syed PA-C BLOOD TRANSFUSION ORDERA BLES Final Result * PREPARE RED BLOOD CELLS (05/12/2025 6:21 AM CDT) Only the most recent of2 resultswithin the time period is included. [facility] COMPONENT TYPE [id number] [facility] LABORATORY SERVICES -- [facility] COMPONENT IDENTIFICATION [id number] [facility] LABORATORY SERVICES -- .[facility] UNIT ABO A [facility] LABORATORY SERVICES -- .[facility] UN[facility] RH POS [facility] SERVICES -- [facility] CROSSMATCH Compatible [facility] LABORATORY SERVICES -- .[facility] COMPONENT STATUS Transfused [facility] LABORATORY SERVICES -- .[facility] COMPONENT EXPIRATION DATE/TIME [id number] [facility] LAB[facility]ORY SERVICES -- [facility] COMPONENT CODING SYSTEM 6200 [facility] LAB[facility] SERVICES -- [facility] VOLUME, BLOOD PRODUCT 350 [facility] SERVICES -- [facility] Other, specify 05/12/2025 6: 21 AM CDT Justino Syed PA-C LAB TRANSFUSION ORDERABL ES Edited Result - Final [facility] LABORATORY SERVICES -- [facility] CLIA# [id number] [address] [place] [address] * MANUAL DIFFERENTIAL (05/12/2025 3:03 AM CDT) Only the most recent of2 resultswithin the time period is included. Pathologist [facility] PLATELET EST. Consistent w Count 05/12/2025 6:28 AM CDT [facility] LAB[facility]ATORY SERVICES - [facility] ANISOCYTOSIS 1+ /hpf 05/12/2025 6:28 AM CDT [facility] SERVICES - [facility] POIKILOCYTES 1+ /hpf 05/12/2025 6:28 AM CDT [facility] SERVICES - [facility] POLYCHROMASIA 1+ /hpf 05/12/2025 6:28 AM CDT [facility] SERVICES - [facility] HYPOCHROMIA 1+ /hpf 05/12/2025 6:28 AM CDT [facility] SERVICES - [facility] OVALOCYTES 1+ /hpf 05/12/2025 6:28 AM CDT [facility] SERVICES - [facility] Blood Venipuncture / Unknown 05/12/2025 3:03 AM CDT 05/12/2025 4:39 AM CDT us Susan Santos NP HEMATOLOGY ORDERABLES COM Final Result [facility] LABORATORY SERVICES - [facility] CLIA# [id number] [address] [place] [address] [place] [address] * (ABNORMAL) KAPPA/LAMBDA, FREE LIGHT CHAINS (05/12/2025 3:03 AM CDT) KAPPA FREE LIGHT CHAIN 88.5(H) 3.3 - 19.4 mg/L 05/13/2025 12:18 PM CDT [facility] [place] FREE LIGHT CHAIN 35.5(H) 5.7 - 26.3 mg/L 05/13/2025 12:18 PM CDT [facility] KAPPA/LAMBDA LIGHT CHAIN RATIO 2.49(H) 0.26 - 1.65 05/13/2025 12:18 PM CDT [facility] Comment: Free kappa/lambda ratio in serum of [...] 4:39 AM CDT Narrative [facility] [place] - 05/13/2025 12:18 PM CDT Performing Organization Information: Site ID: [place] Name: [employer] Address: [address] [address] Director: Tonny Luna MD us Susan Santos NP CHEMISTRY ORDERABLES Final Result [facility] [phone] * (ABNORMAL) CBC WITH DIFFERENTIAL (05/12/2025 3:03 AM CDT) Only the most recent of2 resultswithin the time period is included. WBC 3.5(L) 4.0 - 9.8 K/uL 05/12/2025 6:11 AM T [employer] LABORATORY SERVICES [facility] RBC 2.13(L) 3.90 - 4.90 M/uL 05/12/2025 6:11 AM T [employer] LABORATORY SERVICES [facility] HEMOGLOBIN 6.1(LL) 11.8 - 14.8 g/dL 05/12/2025 6:11 AM T [facility] Comment:Verified by repeat a nalysis. HEMATOCRIT 20.4(L) 35.5 - 44.0 % 05/12/2025 6:11 AM T [employer] LABORATORY SERVICES [facility] MCV 95.8 82.0 - 99.0 fL 05/12/2025 6:11 AM T [employer] LABORATORY SERVICES [facility] MCH 28.6 27.2 - 32.6 pg 05/12/2025 6:11 AM CDT [facility] MCHC 29.9(L) 31.5 - 35.5 g/dL 05/12/2025 6:11 AM T [employer] LABORATORY SERVICES [facility] RDW 16.1(H) 11.5 - 14.5 % 05/12/2025 6:11 AM [employer] LABORATORY SERVICES - [facility] RDW-STDEV 56.9(H) 37.1 - 48.7 fL 05/12/2025 6:11 AM [employer] LABORATORY SERVICES - [facility] PLATELETS 134(L) 140 - 350 K/uL 05/12/2025 6:11 AM [employer] LABORATORY SERVICES - [facility] MPV 11.3 9.3 - 12.4 fL 05/12/2025 6:11 AM [employer] LABORATORY SERVICES - . [facility] NEUTROPHILS 72 % 05/12/2025 6:11 AM [employer] LABORATORY SERVICES - . [facility] LYMPHOCYTES 18 % 05/12/2025 6:11 AM [employer] LABORATORY SERVICES - . [facility] MONOCYTES 7 % 05/12/2025 6:11 AM [employer] LABORATORY SERVICES - . [facility] EOSINOPHILS 2 % 05/12/2025 6:11 AM [employer] LABORATORY SERVICES - . [facility] BASOPHILS 1 % 05/12/2025 6:11 AM [employer] LABORATORY SERVICES - . [facility] IMMATURE GRANULOCYTES 0 % 05/12/2025 6:11 AM [employer] LABORATORY SERVICES - [facility] NEUTROPHIL ABSOLUTE 2.52 1.90 - 7.00 K/uL 05/12/2025 6:11 AM [employer] LABORATORY SERVICES - . [facility] LYMPHOCYTE ABSOLUTE 0.62(L) 0.70 - 4.50 K/uL 05/12/2025 6:11 AM [employer] LABORATORY SERVICES - . [facility] MONOCYTE ABSOLUTE 0.26 0.10 - 1.30 K/uL 05/12/2025 6:11 AM [employer] LABORATORY SERVICES - . [facility] EOSINOPHIL ABSOLUTE 0.07 0.00 - 0.70 K/uL 05/12/2025 6:11 AM [employer] LABORATORY SERVICES - . [facility] BASOPHILS ABSOLUTE 0.02 0.00 - 0.20 K/uL 05/12/2025 6:11 AM [employer] LABORATORY SERVICES - . [facility] IMMATURE GRANULOCYTES ABSOLUTE 0.01 0.00 - 0.03 K/uL 05/12/2025 6:11 AM [employer] LABORATORY SERVICES - . [facility] Blood Venipuncture / Unknown 05/12/2025 3:03 AM CDT 05/12/2025 4:39 AM CDT Susan Santos CONSUMER LOAN OFFICER HEMATOLOGY ORDERABLES Melly l Result [facility] CLIA# [id number] [address] [address] * IMMUNOFIXATION (05/12/2025 3:02 AM CDT) [facility] IMMUNOFIXATION INTERP See Interpretation Below 05/17/2025 3:58 PM CDT [facility] LABORATORY [facility] Comment:Normal polyclonal im munoglobulins INTERPRETED BY: Kat Sands DO 05/17/2025 3:58 PM CDT [facility] Blood Venipuncture / Unknown 05/12/2025 3:02 AM CDT 05/12/2025 4:38 AM CDT Susan Santos CONSUMER LOAN OFFICER CHEMISTRY ORDERABLES Final Result Performing Organization Address City/[facility]/ZIP Co de Phone Number [facility] CLIA # [id number] [address] [place] [address] * IMMUNOGLOBULINS IGG IGA IGM (05/12/2025 3:02 AM CDT) [facility] IGG 1,072 700 - 1,600 mg/dL 05/12/2025 10:59 AM CDT [facility] IGA 167 70 - 400 mg/dL 05/12/2025 10:59 AM CDT [facility] IGM 58 40 - 230 mg/dL 05/12/2025 10:59 AM CDT [facility] Comment: Performed by [facility]: [address], [place] [address]. Blood Venipuncture / Unknown 05/12/2025 3:02 AM CDT 05/12/2025 4:38 AM CDT Susan Santos CONSUMER LOAN OFFICER CHEMISTRY ORDERABLES Final Result [facility] [id number] [address] [place] [address] * (ABNORMAL) PROTEIN ELECTROPHORESIS W/REFLEX,SERUM (05/12/2025 3:02 AM CDT) TOTAL PROTEIN 5.6(L) 6.4 - 8.3 g/dL 05/17/2025 3:58 PM CDT [facility] ALBUMIN SPE 2.97(L) 3.50 - 5.20 g/dL 05/17/2025 3:58 PM CDT [facility] ALPHA 1 GLOBULIN SPE 0.36 0.21 - 0.45 g/dL 05/17/2025 3:58 PM CDT [facility] ALPHA 2 GLOBULIN SPE 0.71 0.50 - 1.01 g/dL 05/17/2025 3:58 PM CDT [facility] BETA GLOBULIN 0.65 0.60 - 1.06 g/dL 05/17/2025 3:58 PM CDT [facility] GAMMA GLOBULIN 0.92 0.60 - 1.33 g/dL 05/17/2025 3:58 PM CDT [facility] SPE INTERP See Interpretation Below 05/17/2025 3:58 PM CDT [facility] Comment:No monoclonal protei n identified. Immunofixation is performed due to a possible abnormal migration in the gamma region-see separate report. INTERPRETED BY: Kat Sands DO 05/17/2025 3:58 PM CDT [facility] Blood Venipuncture / Unknown 05/12/2025 3:02 AM CDT 05/12/2025 4:38 AM CDT Narrative [facility] - 05/17/2025 3:58 PM CDT Immunofixation ordered at [facility] per policy per pathologist. us Susan Santos CONSUMER LOAN OFFICER CHEMISTRY ORDERABLES Final Result [facility] # [id number] [address] [address] [place] [address] * LACTATE DEHYDROGENASE (05/12/2025 3:02 AM CDT) LD (LACTATE DEHYDROGENASE) 156 135 - 214 U/L 05/12/2025 5:26 AM CDT [facility] LABORATORY SERVICES - [facility] Blood Venipuncture / Unknown 05/12/2025 3:02 AM CDT 05/12/2025 4:38 AM CDT Susan Santos CONSUMER LOAN OFFICER CHEMISTRY ORDERABLES Final Result Performing Organization Address [facility]/ZIP Co de Phone Number [facility] LABORATORY [facility]# [id number] [address] [place] [address] * VERIFICATION BLOOD GROUP (05/11/2025 6:01 PM CDT) Pathologist [facility] ABO GROUP A 05/11/2025 7:01 PM CDT [facility] LAB[facility]ORY SERVICES -- [facility] RH (D) TYPE Positive 05/11/2025 7:01 PM CDT [facility] SERVICES -- [facility] Blood Venipuncture / Unknown 05/11/2025 6:01 PM CDT 05/11/2025 6:15 PM CDT Vivek Prabhakar MD BLOOD BANK ORDERABLES Final Result Performing Organization Address City/[facility]/ZIP Co de Phone Number [facility]# [id number] [address] [place] [address] * VITAMIN B12 AND FOLATE (05/11/2025 5:16 PM CDT) Pathologist [facility] VITAMIN B12 589 232 - 1,245 pg/mL 05/12/2025 12:51 AM CDT [facility] Comment:It has been reported that between 5 to 10% of patients with values between 200 and 400 pg/mL may experience neuropsychiatric and hematologic abnormalities due to occult B12 deficiency. Less than 1% of patients with values above 400 pg/mL will have symptoms. FOLATE, SERUM 9.2 >4.5 ng/mL 05/12/2025 12:51 AM CDT [facility] Blood Venipuncture / Unknown 05/11/2025 5:16 PM CDT 05/11/2025 5:33 PM CDT Susan Santos NP CHEMISTRY ORDERABLES Final Result Performing Organization Address [facility]/ZIP Co de Phone Number [facility] CLIA# [id number] [address] [place] [address] * HAPTOGLOBIN (05/11/2025 5:16 PM CDT) HAPTOGLOBIN 172 30 - 200 mg/dL 05/11/2025 6:21 PM CDT [facility] Blood Venipuncture / Unknown 05/11/2025 5:16 PM CDT 05/11/2025 5:33 PM CDT Donald Vegas MD CHEMISTRY ORDERABLES Final Resul t Performing Organization Address [facility]/ZIP Co de Phone Number [facility] CLIA# [id number] [address] [place] [address] * (ABNORMAL) IRON, TIBC, AND PERCENT SATURATION (05/11/2025 5:09 PM CDT) IRON 20(L) 37 - 145 ug/dL 05/11/2025 6:04 PM CDT [facility] LAB[facility] TIBC 390 250 - 450 ug/dL 05/11/2025 6:04 PM CDT [facility] IRON % SATURATION 5(L) 15 - 50 % 05/11/2025 6:04 PM CDT [facility] LABORATORY SERVICES - [facility] TRANSFERRIN 307 200 - 360 mg/dL 05/11/2025 6:04 PM CDT [facility] LABORATORY SERVICES - [facility] Blood Venipuncture / Unknown 05/11/2025 5:09 PM CDT 05/11/2025 5:12 PM CDT Donald Vegas MD CHEMISTRY ORDERABLES Final Resul t Performing Organization Address [facility]/ZIP Co de Phone Number [facility] CLIA# [id number] [address] [place] [address] * (ABNORMAL) RETICULOCYTES (05/11/2025 5:09 PM CDT) RETICULOCYTES 3.3(H) 0.7 - 2.9 % 05/11/2025 6:39 PM CDT [facility] LABORATORY SERVICES - [facility] IMMATURE RETIC FRACTION 31.6(H) 3.0 - 18.0 % 05/11/2025 6:39 PM CDT [facility] LABORATORY SERVICES - [facility] RETICULOCYTE, ABSOLUTE 0.0700 10e6/uL 05/11/2025 6:39 PM CDT [facility] LABORATORY SERVICES - [facility] Blood Venipuncture / Unknown 05/11/2025 5:09 PM CDT 05/11/2025 5:12 PM CDT Susan Santos CONSUMER LOAN OFFICER HEMATOLOGY ORDERABLES Melly l Result Performing Organization Address City/[facility]/ZIP Co de Phone Number [facility] CLIA# [id number] [address] [place] [address] * TYPE AND SCREEN (05/11/2025 5:09 PM CDT) ABO GROUP A 05/11/2025 6:55 PM CDT [facility] RH (D) TYPE Positive 05/11/2025 6:55 PM CDT [facility] ANTIBODY SCREEN Negative 05/11/2025 6:55 PM CDT [facility] Blood Venipuncture / Unknown 05/11/2025 5:09 PM CDT 05/11/2025 5:12 PM CDT Donald Vegas MD BLOOD BANK ORDERABLES Edited Res ult - Final Performing Organization Address City/[facility]/ZIP Co de Phone Number [facility] CLIA# [id number] [address] [place] [address] * TSH (05/11/2025 5:09 PM CDT) [facility] TSH 1.87 0.27 - 4.20 uIU/mL 05/11/2025 7:34 PM CDT [facility] - [facility] Blood Venipuncture / Unknown 05/11/2025 5:09 PM CDT 05/11/2025 5:12 PM CDT Susan Santos CONSUMER LOAN OFFICER CHEMISTRY ORDERABLES Final Result Performing Organization Address City/[facility] Co de Phone Number [facility] [id number] [address] [place] [address] * (ABNORMAL) COMPREHENSIVE METABOLIC PANEL (05/11/2025 5:09 PM CDT) Pathologist [facility] SODIUM 137 136 - 145 mmol/L 05/11/2025 6:04 PM CDT [facility] SERVICES - . [facility] POTASSIUM 4.5 3.5 - 5.0 mmol/L 05/11/2025 6:04 PM CDT [facility] - . [facility] CHLORIDE 103 98 - 107 mmol/L 05/11/2025 6:04 PM CDT [facility] - [facility] CO2 21(L) 22 - 29 mmol/L 05/11/2025 6:04 PM CDT [facility] - . [facility] CALCIUM 9.1 8.6 - 10.2 mg/dL 05/11/2025 6:04 PM [facility] BUN 38(H) 8 - 23 mg/dL 05/11/2025 6:04 PM [facility] CREATININE 1.87(H) 0.51 - 0.95 mg/dL 05/11/2025 6:04 PM [facility] Comment:The GFR result is no t clinically significant on patients <18 or >70 years of age. GLUCOSE 109(H) 74 - 99 mg/dL 05/11/2025 6:04 PM [facility] TOTAL PROTEIN 6.8 6.7 - 8.6 g/dL 05/11/2025 6:04 PM [facility] ALBUMIN 3.9 3.5 - 5.2 g/dL 05/11/2025 6:04 PM [facility] BILIRUBIN TOTAL 0.7 0.0 - 1.1 mg/dL 05/11/2025 6:04 PM [facility] ALKALINE PHOSPHATASE 167(H) 35 - 104 U/L 05/11/2025 6:04 PM [facility] AST 35(H) <33 U/L 05/11/2025 6:04 PM [facility] ALT 16 <34 U/L 05/11/2025 6:04 PM [facility] GFR 28 mL/min/1.7 3 sq meter 05/11/2025 6:04 PM [facility] Comment:eGFR calculated with 2020 CKD-EPI equation. Vegetarian diet, extremely high or low muscle mass, and may affect results. Cystatin C with Glomerular Filtration Rate is a suitable alternative for these patients. ANION GAP 13 8 - 16 mmol/L 05/11/2025 6:04 PM [facility] Blood Venipuncture / Unknown 05/11/2025 5:09 PM CDT 05/11/2025 5:12 PM [facility] LABORATORY [facility] - 05/11/2025 6:04 PM CDT Samples containing indocyanine green cause interferences on Total and/or Direct Bilirubin and must not be measured. Donald Vegas MD CHEMISTRY ORDERABLES Final Resul t [facility]# [id number] [address] [place] [address] * Critical Care (05/11/2025 4:53 PM CDT) [...] 3:27 PM CDT) 05/11/2025 3:27 PM CDT Narrative INTERFACE SYSTEM - 05/11/2025 6:11 PM CDT [facility] [address] [facility] [place] [address] Test Date: 2025-05-11 Pat Name: ASHWINI ANDERSON Department: 38 Room: Gender: Female Python Architect: [email or web address] : 1950 Requested By: Order Number: [id number] Reading MD: Arnaldo Fernnadez Measurements Intervals [place] Rate: 82 P: 44 GA: 156 QRS: -14 QRSD: 94 T: 28 QT: 372 QTc: 435 Interpretive Statements Sinus rhythm Low voltage, precordial leads LVH by voltage Baseline wander in lead(s) V1 Electronically Signed On 05-11-2025 18:11:38 CDT by Arnaldo Fernandez Procedure Note Arnaldo Fernandez MD - 05/11/2025 [facility] [address] [place] [address] Test Date: 2025-05-11 Pat Name: ASHWINI HARMONE Department: 38 Room: Gender: Female Python Architect: [email or web address] : 1950 Requested By: Order Number: [id number] Parisa MD: Arnaldo Fernandez Measurements Intervals [place] Rate: 82 P: 44 GA: 156 QRS: -14 QRSD: 94 T: 28 QT: 372 QTc: 435 Interpretive Statements Sinus rhythm Low voltage, precordial leads LVH by voltage Baseline wander in lead(s) V1 Electronically Signed On 05-11-2025 18:11:38 CDT by Arnaldo Fernandez us Protocol [facility] Emergency MD ECG ORDERABLES Melly l Result INTERFACE SYSTEM Refer to clinic/hospital department from Last 3 Months Insurance MEDICARE [employer] RETIRED [employer]YE[employer]IRED [employer] EMPLOYEES MEDICARE RAILROAD Advance Directives For more information, please contact: [phone] * Full Code (Latest Code Status on File) Date Activated Date Inactivated Comments 05/11/2025 7:08 PM 05/13/2025 7:07 PM 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
[2025-06-21 15:28] LABS: Hematocrit 28.9 % (37.0-47.0); Hemoglobin 8.7 g/dL (12.0-15.0); Immature Granulocyte Percent A 0.2 % (0-0.5); Lymphocytes Absolute Auto 0.67 K/mm3 (0.9-3.2); Mean Corpuscular HGB Conc 30.1 g/dl (32-36); Mean Corpuscular Hemoglobin 28.5 pg (26-34); Mean Corpuscular Volume 94.8 fl (80-100); Nucleated Red Blood Cells Absolute Auto 0.000 K/mm3 (0.0-0.012); Nucleated Red Blood Cells Perc 0.0 % (0.0-0.2); Platelet Count Result 168 k/mm3 (150-375); Red Blood Count 3.05 M/mm3 (4.2-5.4); White Blood Count 5.7 K/mm3 (4.5-10.0)
== END 2025-06-21 14:01 | disposition home or self-care (01) ==
PROVIDERS: PCP Emergency Medicine; Visit Provider Emergency Medicine
DX: I10 Essential (primary) hypertension (principal)
CPT/HCPCS: 36415; 85025

== ENCOUNTER 2025-07-20 15:13 | Outpatient (CLI) | payer MEDICARE, OTHER, SELFPAY ==
[2025-07-20 15:28] LABS: Hematocrit 28.8 % (37.0-47.0); Hemoglobin 9.0 g/dL (12.0-15.0); Immature Granulocyte Percent A 0.4 % (0-0.5); Lymphocytes Absolute Auto 0.86 K/mm3 (0.9-3.2); Mean Corpuscular HGB Conc 31.3 g/dl (32-36); Mean Corpuscular Hemoglobin 30.7 pg (26-34); Mean Corpuscular Volume 98.3 fl (80-100); Nucleated Red Blood Cells Absolute Auto 0.000 K/mm3 (0.0-0.012); Nucleated Red Blood Cells Perc 0.0 % (0.0-0.2); Platelet Count Result 159 k/mm3 (150-375); Red Blood Count 2.93 M/mm3 (4.2-5.4); White Blood Count 7.2 K/mm3 (4.5-10.0)
--- OUTSIDE RECORDS SUMMARY | 2025-07-20 15:40 | XMS_ITS | Clinical Summary ---
Author Organization [facility] Alirio prince Danahaileycorby Address [address] [place] [address] Care Team Providers Care Director Of Coding Name Role Phone Dequan Patino MD Primary Care Provider [phone] Allergies Active Allergy Reactions Criticality Noted Date [...] tablet Take 40 mg by mouth daily. 02/02/2025 Active amLODIPine (NORVASC) 10 mg tablet Take 10 mg by mouth daily. Active Active Problems Problem Noted Date Diagnosed Date [...] STL ABSTRACTION Provider, Abstract 5 Results Follow-Up [facility] Gastroenterology [facility] [address] [place] [address] Ravindra Jolly MD PATHOLOGY 5 10:13 AM CDT Anesthesia Event [facility] GI [facility] [address] [place] [address] Miguel Angel Lemus MD 5 9:40 AM CDT - 5 10:20 AM CDT Surgery [facility] [address] [place] [address] Ravindra Jolly MD ESOPHAGOGASTRODUODENOSCOPY 5 4:29 PM CDT - 5 5:07 PM CDT Hospital Encounter [facility] Oncology [address] [place] [address] Donald Vegas MD Khan, Mafaza, MD Kroeger, [...] Comments DTAP/TDAP/TD VACCINES (1 - Tdap) 1968 FIT-DNA Q 3 years 1994 FIT/FOBT [...] Screening 05/13/2035 Medical Devices Implanted Type Area Admissions Coordinator Device Identifier Shelf Expiration Date Model / Serial / Lot Clip Endo Resolution 360 235cm [id number] - [id number] Implanted:Qty: 1 on 05/13/2025 by Ravindra Jolly MD at [facility] Clip N/A: Stomach [employer]OS[employer] [id number] 12/30/2027 [id number] / / [id number] Procedures Procedure Name Priority Date/Time Associated Diagnosis [...] Jolly MD - 05/13/2025 11:37 AM CDT [facility] Endoscopy Patient Name: Ashwini Anderson Procedure Date: [...] of Addenda: [address]; [place] [address] Ravindra Jolly MD GI PROCEDURE ORDERABLES Final Re sult * UPPER ENDOSCOPY REPORT (05/13/2025 11:32 AM CDT) Narrative Procedure Note Ravindra Jolly MD - 05/13/2025 11:32 AM CDT [facility] Endoscopy Patient Name: Ashwini Anderson Procedure Date: [...] of Addenda: [address]; [place] [address] us Ravindra Jolly MD GI PROCEDURE ORDERABLES Final Re sult * PATHOLOGY (05/13/2025 10:58 AM CDT) CASE REPORT Surgical Pathology R eport Case: [id number] Authorizing Provider: Ravindra Jolly MD Collected: 05/13/2025 10:58 AM Ordering Location: [facility] GI [facility] [address] Received: 05/13/2025 02:10 PM Pathologist: Connie Leong MD Specimen: Stomach, polyp x2 5 4:46 PM CDT [facility] FINAL DIAGNOSIS Stomach, polyps x 2, biopsy: - Hyperplastic polyps, 2. 5 4:46 PM CDT [facility] at 1646 CDT GROSS DESCRIPTION Received in one container labeled Ashwini Anderson and stomach polyps x 2 are 2 pieces of red-logan tissue measuring 1.0 and 1.9 cm in greatest dimension. The bases of the 2 polyps are differentially inked blue and black. Each piece is bisected and the tissue is entirely submitted in cassette A1. ELH 5 4:46 PM CDT [facility] MICROSCOPIC DESCRIPTION The slides are labeled [id number] and Ashwini Anderson. Sections show hyperplastic polyps with mild reactive changes, mixed inflammation and surface erosion with granulation tissue. There is no evidence of intestinal (goblet cell) metaplasia, dysplasia or malignancy. Immunohistochemical stain for Helicobacter pylori is negative. 5 4:46 PM CDT [facility] OPERATIVE PROCEDURE 1: Esophagogastroduodenoscop y 2: Colonoscopy 5 4:46 PM T [facility] CLINICAL INFORMATION A Gastric Polyps x2 5 4:46 PM T [facility] COMMENT Special stain, immunohistochemical, and/or in situ hybridization results are interpreted with controls that demonstrate appropriate staining reactions. Note on use of immunohistochemistry reagents and in situ hybridization probes: These tests were developed and their performance characteristics determined by [facility], Department of Laboratory Medicine. It has not [...] part or completely in the following laboratories: [facility] #[id number] [facility] SystemDale MartinLilliwaup, [place] [address] [place], [place] [address]MELISSA #[id number] 1 [place] [address] [facility]/AngelinaRIDGE[facility] MEDICAL CENTERIA #[id number] [address] [place] [address] This report was created with the [employer] voice-activated dictation system. Inherent to this system is the possibility of syntax, grammar, punctuation and other errors that could impact the interpretation of the report. If there are interpretative questions about aspects of this report, please contact the performing pathologist. 4:46 PM T [facility] Tissue ENTIRE STOMACH / Unknown Collection / Unknown 05/13/2025 10:58 AM CDT 05/13/2025 2:10 PM CDT Comment:Gastric Polyps x2 Ravindra Jolly MD PATHOLOGY/CYTOLOGY ORDERABLES Fi nal Result [facility]# [id number] [address] [place] [address] * (ABNORMAL) CBC WITHOUT DIFFERENTIAL (05/13/2025 7:32 AM CDT) WBC 4.2 4.0 - 9.8 K/uL 05/13/2025 7:56 AM CDT [facility] RBC 2.69(L) 3.90 - 4.90 M/uL 05/13/2025 7:56 AM T [facility] HEMOGLOBIN 7.5(L) 11.8 - 14.8 g/dL 05/13/2025 7:56 AM T [facility] HEMATOCRIT 24.4(L) 35.5 - 44.0 % 05/13/2025 7:56 AM T [facility] MCV 90.7 82.0 - 99.0 fL 05/13/2025 7:56 AM CDT [facility] MCH 27.9 27.2 - 32.6 pg 05/13/2025 7:56 AM CDT [facility] MCHC 30.7(L) 31.5 - 35.5 g/dL 05/13/2025 7:56 AM CDT [facility] - . [facility] PLATELETS 140 140 - 350 K/uL 05/13/2025 7:56 AM CDT [facility] - . [facility] MPV 11.2 9.3 - 12.4 fL 05/13/2025 7:56 AM CDT [facility] RDW 16.8(H) 11.5 - 14.5 % 05/13/2025 7:56 AM CDT [facility] RDW-STDEV 55.8(H) 37.1 - 48.7 fL 05/13/2025 7:56 AM T [facility] Blood Venipuncture / Unknown 05/13/2025 7:32 AM CDT 05/13/2025 7:38 AM CDT hCon Hernandez MD HEMATOLOGY ORDERABLES Final Resu lt [facility]# [id number] [address] [place] [address] * (ABNORMAL) BASIC METABOLIC PANEL (05/13/2025 7:32 AM CDT) Only the most recent of2 resultswithin the time period is included. SODIUM 136 136 - 145 mmol/L 05/13/2025 8:26 AM T [facility]. [facility] POTASSIUM 4.2 3.5 - 5.0 mmol/L 05/13/2025 8:26 AM T [facility] - . [facility] CHLORIDE 102 98 - 107 mmol/L 05/13/2025 8:26 AM CDT [facility] - . [facility] CO2 21(L) 22 - 29 mmol/L 05/13/2025 8:26 AM CDT [facility] - . [facility] CALCIUM 8.9 8.6 - 10.2 mg/dL 05/13/2025 8:26 AM CDT [facility] BUN 32(H) 8 - 23 mg/dL 05/13/2025 8:26 AM T [facility] CREATININE 1.79(H) 0.51 - 0.95 mg/dL 05/13/2025 8:26 AM T [facility] Comment:The GFR result is no t clinically significant on patients <18 or >70 years of age. GLUCOSE 87 74 - 99 mg/dL 05/13/2025 8:26 AM T [facility] GFR 29 mL/min/1.7 3 sq meter 05/13/2025 8:26 AM T [facility] Comment:eGFR calculated with 2020 CKD-EPI equation. Vegetarian diet, extremely high or low muscle mass, and may affect results. Cystatin C with Glomerular Filtration Rate is a suitable alternative for these patients. ANION GAP 13 8 - 16 mmol/L 05/13/2025 8:26 AM T [facility] Blood Venipuncture / Unknown 05/13/2025 7:32 AM CDT 05/13/2025 7:38 AM CDT Chon Hernandez MD CHEMISTRY ORDERABLES Final Resul t [facility]# [id number] [address] [facility] [place] [address] * (ABNORMAL) HEMOGLOBIN AND HEMATOCRIT (05/12/2025 12:28 PM CDT) Pathologist [facility] HEMOGLOBIN 7.5(L) 11.8 - 14.8 g/dL 05/12/2025 2:41 PM CDT [facility] Comment:Significant change f rom prior result, correlate clinically and redraw if necessary. HEMATOCRIT 24.1(L) 35.5 - 44.0 % 05/12/2025 2:41 PM CDT [facility] Blood Venipuncture / Unknown 05/12/2025 12:28 PM CDT 05/12/2025 2:13 PM CDT Chon Hernandez MD HEMATOLOGY ORDERABLES Final Resu lt [facility] CLAZEB# [id number] [address] [place] [address] * TRANSFUSE RED BLOOD CELLS (05/12/2025 11:06 AM CDT) Only the most recent of2 resultswithin the time period is included. Justino Syed PA-C BLOOD TRANSFUSION ORDERA BLES Final Result * PREPARE RED BLOOD CELLS (05/12/2025 6:21 AM CDT) Only the most recent of2 resultswithin the time period is included. [facility] COMPONENT TYPE [id number] [facility] -- .[facility] COMPONENT IDENTIFICATION [id number] [facility] -- [facility] UNIT ABO A [facility] -- [facility] UNIT RH POS [facility] -- [facility] CROSSMATCH Compatible [facility] -- .[facility] COMPONENT STATUS Transfused [facility] -- [facility] COMPONENT EXPIRATION DATE/TIME [id number] [facility] -- [facility] COMPONENT CODING SYSTEM 6200 [facility] -- .[facility] VOLUME, BLOOD PRODUCT 350 [facility] -- .[facility] Other, specify 05/12/2025 6: 21 AM CDT Justino Syed PA-C LAB TRANSFUSION ORDERABL ES Edited Result - Final [facility] -- [facility] CLIA# [id number] [address] [place] [address] * MANUAL DIFFERENTIAL (05/12/2025 3:03 AM CDT) Only the most recent of2 resultswithin the time period is included. [facility] PLATELET EST. Consistent w Count 05/12/2025 6:28 AM CDT [facility] ANISOCYTOSIS 1+ /hpf 05/12/2025 6:28 AM CDT [facility] POIKILOCYTES 1+ /hpf 05/12/2025 6:28 AM CDT [facility] - [facility] POLYCHROMASIA 1+ /hpf 05/12/2025 6:28 AM CDT [facility] HYPOCHROMIA 1+ /hpf 05/12/2025 6:28 AM CDT [facility] - [facility] OVALOCYTES 1+ /hpf 05/12/2025 6:28 AM CDT [facility] Blood Venipuncture / Unknown 05/12/2025 3:03 AM CDT 05/12/2025 4:39 AM CDT us Susan Santos NP HEMATOLOGY ORDERABLES COM Final Result [facility] [id number] [address] [facility] [place] [address] * (ABNORMAL) KAPPA/LAMBDA, FREE LIGHT CHAINS (05/12/2025 3:03 AM CDT) KAPPA FREE LIGHT CHAIN 88.5(H) 3.3 - 19.4 mg/L 05/13/2025 12:18 PM CDT [facility] LAMBDA FREE LIGHT CHAIN 35.5(H) 5.7 - 26.3 mg/L 05/13/2025 12:18 PM CDT [facility] KAPPA/LAMBDA LIGHT CHAIN RATIO 2.49(H) 0.26 - 1.65 05/13/2025 12:18 PM CDT [facility] Comment: Free kappa/lambda ratio in serum of [...] 4:39 AM CDT Narrative [facility] - 05/13/2025 12:18 PM CDT Performing Organization Information: Site ID: [place] Name: [employer] Address: [address] [address] Director: Tonny Luna MD Susan Santos SOCIAL SERVICES COUNSELOR CHEMISTRY ORDERABLES Final Result [facility] [phone] * (ABNORMAL) CBC WITH DIFFERENTIAL (05/12/2025 3:03 AM CDT) Only the most recent of2 resultswithin the time period is included. WBC 3.5(L) 4.0 - 9.8 K/uL 05/12/2025 6:11 AM CDT [facility] RBC 2.13(L) 3.90 - 4.90 M/uL 05/12/2025 6:11 AM T [facility] HEMOGLOBIN 6.1(LL) 11.8 - 14.8 g/dL 05/12/2025 6:11 AM T [facility] Comment:Verified by repeat a nalysis. HEMATOCRIT 20.4(L) 35.5 - 44.0 % 05/12/2025 6:11 AM T [facility] MCV 95.8 82.0 - 99.0 fL 05/12/2025 6:11 AM CDT [facility] MCH 28.6 27.2 - 32.6 pg 05/12/2025 6:11 AM CDT [facility] MCHC 29.9(L) 31.5 - 35.5 g/dL 05/12/2025 6:11 AM CDT [facility] RDW 16.1(H) 11.5 - 14.5 % 05/12/2025 6:11 AM CDT [facility] RDW-STDEV 56.9(H) 37.1 - 48.7 fL 05/12/2025 6:11 AM CDT [facility] PLATELETS 134(L) 140 - 350 K/uL 05/12/2025 6:11 AM CDT [facility] MPV 11.3 9.3 - 12.4 fL 05/12/2025 6:11 AM CDT [facility] NEUTROPHILS 72 % 05/12/2025 6:11 AM CDT [facility] LYMPHOCYTES 18 % 05/12/2025 6:11 AM CDT [facility] - . [facility] MONOCYTES 7 % 05/12/2025 6:11 AM CDT [facility] - . [facility] EOSINOPHILS 2 % 05/12/2025 6:11 AM CDT [facility] - . [facility] BASOPHILS 1 % 05/12/2025 6:11 AM CDT [facility] IMMATURE GRANULOCYTES 0 % 05/12/2025 6:11 AM CDT [facility] NEUTROPHIL ABSOLUTE 2.52 1.90 - 7.00 K/uL 05/12/2025 6:11 AM CDT [facility] LYMPHOCYTE ABSOLUTE 0.62(L) 0.70 - 4.50 K/uL 05/12/2025 6:11 AM CDT [facility] MONOCYTE ABSOLUTE 0.26 0.10 - 1.30 K/uL 05/12/2025 6:11 AM CDT [facility] - . [facility] EOSINOPHIL ABSOLUTE 0.07 0.00 - 0.70 K/uL 05/12/2025 6:11 AM [facility] - . [facility] BASOPHILS ABSOLUTE 0.02 0.00 - 0.20 K/uL 05/12/2025 6:11 AM [facility] - . [facility] IMMATURE GRANULOCYTES ABSOLUTE 0.01 0.00 - 0.03 K/uL 05/12/2025 6:11 AM [employer] [facility] Blood Venipuncture / Unknown 05/12/2025 3:03 AM CDT 05/12/2025 4:39 AM CDT us Susan Santos SOCIAL SERVICES COUNSELOR HEMATOLOGY ORDERABLES Melly l Result Performing Organization Address City/[facility]/ZIP Co de Phone Number [facility] CLIA# [id number] [address] [place] [address] * IMMUNOFIXATION (05/12/2025 3:02 AM CDT) [facility] IMMUNOFIXATION INTERP See Interpretation Below 05/17/2025 3:58 PM CDT [facility] Comment:Normal polyclonal im munoglobulins INTERPRETED BY: Kat Sands, 05/17/2025 3:58 PM CDT [facility] Blood Venipuncture / Unknown 05/12/2025 3:02 AM CDT 05/12/2025 4:38 AM CDT Susan Santos SOCIAL SERVICES COUNSELOR CHEMISTRY ORDERABLES Final Result Performing Organization Address City/[facility] Co de Phone Number [facility] CLIA # [id number] [address] [address] * IMMUNOGLOBULINS IGG IGA IGM (05/12/2025 3:02 AM CDT) [facility] IGG 1,072 700 - 1,600 mg/dL 05/12/2025 10:59 AM CDT [facility] IGA 167 70 - 400 mg/dL 05/12/2025 10:59 AM CDT [facility] IGM 58 40 - 230 mg/dL 05/12/2025 10:59 AM CDT [facility] Comment: Performed by [facility]: [address], [place] [address]. Blood Venipuncture / Unknown 05/12/2025 3:02 AM CDT 05/12/2025 4:38 AM CDT Susan A Tom SOCIAL SERVICES COUNSELOR CHEMISTRY ORDERABLES Final Result [facility]# [id number] [address] [place] [address] * (ABNORMAL) PROTEIN ELECTROPHORESIS W/REFLEX,SERUM (05/12/2025 3:02 AM CDT) TOTAL PROTEIN 5.6(L) 6.4 - 8.3 g/dL 05/17/2025 3:58 PM CDT [facility] ALBUMIN SPE 2.97(L) 3.50 - 5.20 g/dL 05/17/2025 3:58 PM CDT [facility] ALPHA 1 GLOBULIN SPE 0.36 0.21 - 0.45 g/dL 05/17/2025 3:58 PM CDT [facility] ALPHA 2 GLOBULIN SPE 0.71 0.50 - 1.01 g/dL 05/17/2025 3:58 PM CDT [facility] BETA GLOBULIN 0.65 0.60 - 1.06 g/dL 05/17/2025 3:58 PM CDT [facility] GAMMA GLOBULIN 0.92 0.60 - 1.33 g/dL 05/17/2025 3:58 PM CDT [facility] SPE INTERP See Interpretation Below 05/17/2025 3:58 PM CDT [facility] Comment:No monoclonal protei n identified. Immunofixation is performed due to a possible abnormal migration in the gamma region-see separate report. INTERPRETED BY: Kat Sands DO 05/17/2025 3:58 PM CDT [facility] Blood Venipuncture / Unknown 05/12/2025 3:02 AM CDT 05/12/2025 4:38 AM CDT Narrative [facility] - 05/17/2025 3:58 PM CDT Immunofixation ordered at [facility] per policy per pathologist. Susan Santos SOCIAL SERVICES COUNSELOR CHEMISTRY ORDERABLES Final Result [facility] # [id number] [address] [address] [place] [address] * LACTATE DEHYDROGENASE (05/12/2025 3:02 AM CDT) LD (LACTATE DEHYDROGENASE) 156 135 - 214 U/L 05/12/2025 5:26 AM CDT [facility] Blood Venipuncture / Unknown 05/12/2025 3:02 AM CDT 05/12/2025 4:38 AM CDT Susan Santos NP CHEMISTRY ORDERABLES Final Result Performing Organization Address [facility] Co de Phone Number [facility]# [id number] [address] [place] [address] * VERIFICATION BLOOD GROUP (05/11/2025 6:01 PM CDT) Pathologist [facility] ABO GROUP A 05/11/2025 7:01 PM CDT [facility] RH (D) TYPE Positive 05/11/2025 7:01 PM CDT [facility] Blood Venipuncture / Unknown 05/11/2025 6:01 PM CDT 05/11/2025 6:15 PM CDT Vivek Prabhakar MD BLOOD BANK ORDERABLES Final Result Performing Organization Address [facility] Co de Phone Number [facility]# [id number] [address] [place] [address] * VITAMIN B12 AND FOLATE (05/11/2025 5:16 PM CDT) Pathologist [facility] VITAMIN B12 589 232 - 1,245 pg/mL 05/12/2025 12:51 AM CDT [facility] Comment:It has been reported that between 5 to 10% of patients with values between 200 and 400 pg/mL may experience neuropsychiatric and hematologic abnormalities due to occult B12 deficiency. Less than 1% of patients with values above 400 pg/mL will have symptoms. FOLATE, SERUM 9.2 >4.5 ng/mL 05/12/2025 12:51 AM CDT [facility] Blood Venipuncture / Unknown 05/11/2025 5:16 PM CDT 05/11/2025 5:33 PM CDT Susan Santos NP CHEMISTRY ORDERABLES Final Result [facility] CLIA# [id number] [address] [place] [address] * HAPTOGLOBIN (05/11/2025 5:16 PM CDT) HAPTOGLOBIN 172 30 - 200 mg/dL 05/11/2025 6:21 PM CDT [facility] Blood Venipuncture / Unknown 05/11/2025 5:16 PM CDT 05/11/2025 5:33 PM CDT Donald Vegas MD CHEMISTRY ORDERABLES Final Resul t Performing Organization Address City/[facility]/ZIP Co de Phone Number [facility] CLCT# [id number] [address] [place] [address] * (ABNORMAL) IRON, TIBC, AND PERCENT SATURATION (05/11/2025 5:09 PM CDT) IRON 20(L) 37 - 145 ug/dL 05/11/2025 6:04 PM CDT [facility] TIBC 390 250 - 450 ug/dL 05/11/2025 6:04 PM CDT [facility] IRON % SATURATION 5(L) 15 - 50 % 05/11/2025 6:04 PM CDT [facility] TRANSFERRIN 307 200 - 360 mg/dL 05/11/2025 6:04 PM CDT [facility] Blood Venipuncture / Unknown 05/11/2025 5:09 PM CDT 05/11/2025 5:12 PM CDT Donald Vegas MD CHEMISTRY ORDERABLES Final Resul t Performing Organization Address [facility] Co de Phone Number [facility]# [id number] [facility] [place] [address] * (ABNORMAL) RETICULOCYTES (05/11/2025 5:09 PM CDT) Pathologist [facility] RETICULOCYTES 3.3(H) 0.7 - 2.9 % 05/11/2025 6:39 PM CDT [facility] IMMATURE RETIC FRACTION 31.6(H) 3.0 - 18.0 % 05/11/2025 6:39 PM CDT [facility] RETICULOCYTE, ABSOLUTE 0.0700 10e6/uL 05/11/2025 6:39 PM CDT [facility] Blood Venipuncture / Unknown 05/11/2025 5:09 PM CDT 05/11/2025 5:12 PM CDT Susan Santos NP HEMATOLOGY ORDERABLES Melly l Result Performing Organization Address [facility] Co de Phone Number [facility]# [id number] [facility] [place] [address] [place] [address] * TYPE AND SCREEN (05/11/2025 5:09 PM CDT) Pathologist [facility] ABO GROUP A 05/11/2025 6:55 PM CDT [facility] -- [facility] RH (D) TYPE Positive 05/11/2025 6:55 PM CDT [facility] -- [facility] ANTIBODY SCREEN Negative 05/11/2025 6:55 PM CDT [facility] -- [facility] Blood Venipuncture / Unknown 05/11/2025 5:09 PM CDT 05/11/2025 5:12 PM CDT Donald Vegas MD BLOOD BANK ORDERABLES Edited Res ult - Final [facility] -- [facility]# [id number] [address] [place] [address] * TSH (05/11/2025 5:09 PM CDT) Pathologist [facility] TSH 1.87 0.27 - 4.20 uIU/mL 05/11/2025 7:34 PM CDT [facility] - [facility] Blood Venipuncture / Unknown 05/11/2025 5:09 PM CDT 05/11/2025 5:12 PM CDT Susan Santos NP CHEMISTRY ORDERABLES Final Result [facility] - [facility]# [id number] [address] [place] [address] * (ABNORMAL) COMPREHENSIVE METABOLIC PANEL (05/11/2025 5:09 PM CDT) SODIUM 137 136 - 145 mmol/L 05/11/2025 6:04 PM CDT [employer] - [facility] POTASSIUM 4.5 3.5 - 5.0 mmol/L 05/11/2025 6:04 PM CDT [employer] [facility] - [facility] CHLORIDE 103 98 - 107 mmol/L 05/11/2025 6:04 PM CDT [facility] - [facility] CO2 21(L) 22 - 29 mmol/L 05/11/2025 6:04 PM CDT [facility] - [facility] CALCIUM 9.1 8.6 - 10.2 mg/dL 05/11/2025 6:04 PM CDT [facility] - [facility] BUN 38(H) 8 - 23 mg/dL 05/11/2025 6:04 PM [facility] CREATININE 1.87(H) 0.51 - 0.95 mg/dL 05/11/2025 6:04 PM [facility] [facility] Comment:The GFR result is no t clinically significant on patients <18 or >70 years of age. GLUCOSE 109(H) 74 - 99 mg/dL 05/11/2025 6:04 PM [facility] TOTAL PROTEIN 6.8 6.7 - 8.6 g/dL 05/11/2025 6:04 PM [facility] ALBUMIN 3.9 3.5 - 5.2 g/dL 05/11/2025 6:04 PM [facility] BILIRUBIN TOTAL 0.7 0.0 - 1.1 mg/dL 05/11/2025 6:04 PM [facility] ALKALINE PHOSPHATASE 167(H) 35 - 104 U/L 05/11/2025 6:04 PM [facility] AST 35(H) <33 U/L 05/11/2025 6:04 PM [facility] ALT 16 <34 U/L 05/11/2025 6:04 PM [facility] GFR 28 mL/min/1.7 3 sq meter 05/11/2025 6:04 PM [facility] Comment:eGFR calculated with 2020 CKD-EPI equation. Vegetarian diet, extremely high or low muscle mass, and may affect results. Cystatin C with Glomerular Filtration Rate is a suitable alternative for these patients. ANION GAP 13 8 - 16 mmol/L 05/11/2025 6:04 PM [facility] Blood Venipuncture / Unknown 05/11/2025 5:09 PM CDT 05/11/2025 5:12 PM T Critical access hospital [facility] - 05/11/2025 6:04 PM T Samples containing indocyanine green cause interferences on Total and/or Direct Bilirubin and must not be measured. us Donald Vegas MD CHEMISTRY ORDERABLES Final Resul t [facility]# [id number] [address] 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 Attorney: [id number] : 1950 Requested By: Order Number: [id number] Parisa MD: Arnaldo Fernandez Measurements Intervals [place] Rate: 82 P: 44 [place]: 156 QRS: -14 QRSD: 94 T: 28 QT: 372 QTc: 435 Interpretive Statements Sinus rhythm Low voltage, precordial leads LVH by voltage Baseline wander in lead(s) V1 Electronically Signed On 05-11-2025 18:11:38 CDT by Arnaldo Fernandez Procedure Note Arnaldo Fernandez MD - 05/11/2025 [facility] [address] [place] [address] Test Date: 2025-05-11 Pat Name: ASHWINI ANDERSON Department: 38 Room: Gender: Female Patent Prosecution Attorney: [id number] : 1950 Requested By: Order Number: [id number] Reading MD: Arnaldo Fernandez Measurements Intervals [place] Rate: 82 P: 44 [place]: 156 QRS: -14 QRSD: 94 T: 28 QT: 372 QTc: 435 Interpretive Statements Sinus rhythm Low voltage, precordial leads LVH by voltage Baseline wander in lead(s) V1 Electronically Signed On 05-11-2025 18:11:38 CDT by Arnaldo Fernandez us Protocol [facility] Emergency MD ECG ORDERABLES Melly l Result INTERFACE SYSTEM Refer to clinic/hospital department from Last 3 Months Insurance MEDICARE [employer]YE[employer] RETIRED [employer]YE[employer] MEDICARE [employer] Advance Directives For more information, please contact: [phone] * Full Code (Latest Code Status on File) Date Activated Date Inactivated Comments 05/11/2025 7:08 PM 05/13/2025 7:07 PM Care Teams Director Of Coding Relationship Specialty Start Date End Date Dequan Patino MD [address] [place] [address] PCP - General Internal Medicine 09/29/24
== END 2025-07-20 15:14 | disposition home or self-care (01) ==
PROVIDERS: PCP Emergency Medicine; Visit Provider Emergency Medicine
DX: I10 Essential (primary) hypertension (principal)
CPT/HCPCS: 36415; 85025

== ENCOUNTER 2025-08-05 15:22 | Outpatient (CLI) | payer MEDICARE, OTHER, SELFPAY ==
--- OUTSIDE RECORDS SUMMARY | 2025-08-05 15:26 | XMS_ITS | Clinical Summary ---
Author Organization [facility] Alirio prince Danahaileycorby Address [address] [place] [address] Care Team Providers Care Ton Cylinder Inspector Name Role Phone Dequan Patino MD Primary Care Provider [phone] Allergies Active Allergy Reactions Criticality Noted Date [...] STL ABSTRACTION Provider, Abstract 5 Results Follow-Up [facility] Gastroenterology [facility] [address] [facility] [address] [place] [address] Ravindra Jolly MD PATHOLOGY 5 10:13 AM CDT Anesthesia Event [facility] GI Lab [id number] [place] [address] Miguel Angel Lemus MD 5 9:40 AM CDT - 5 10:20 AM CDT Surgery [facility] GI Lab [address] [place] [address] Ravindra Jolly MD ESOPHAGOGASTRODUODENOSCOPY 5 4:29 PM CDT - 5 5:07 PM CDT Hospital Encounter [facility] Oncology [address] [place] [address] Donald Vegas MD Khan, Mafaza, MD Kroeger, Ryan L, Chon Mustafa MD Anemia Discharge Disposition: Home or Self Care Travel from Last 3 Months Family History Medical [...] Screening 05/13/2035 Medical Devices Implanted Type Area Window Assembler Device Identifier Shelf Expiration Date Model / Serial / Lot Clip Endo Resolution 360 235cm [id number] - [id number] Implanted:Qty: 1 on 05/13/2025 by Ravindra Jolly MD at [facility] Clip N/A: Stomach [employer] [facility] [id number] 12/30/2027 [id number] / / [id number] Procedures Procedure Name Priority Date/Time Associated Diagnosis [...] Jolly MD - 05/13/2025 11:37 AM CDT [facility] Endoscopy Patient Name: Ashwini Anderson Procedure [...] of Addenda: [address]; [place] [address] Ravindra Jolly MD GI PROCEDURE ORDERABLES Final Re sult * UPPER ENDOSCOPY REPORT (05/13/2025 11:32 AM CDT) Narrative Procedure Note Ravindra Jolly MD - 05/13/2025 11:32 AM CDT [facility] Endoscopy Patient Name: Ashwini Anderson Procedure [...] of Addenda: [address]; [place] [address] Ravindra Jolly MD GI PROCEDURE ORDERABLES Final Re sult * PATHOLOGY (05/13/2025 10:58 AM CDT) CASE REPORT Surgical Pathology R eport Case: [id number] Authorizing Provider: Ravindra Jolly MD Collected: 05/13/2025 10:58 AM Ordering Location: [facility] GI [facility] Alicia [address] Received: 05/13/2025 02:10 PM Pathologist: Connie Leong MD Specimen: Stomach, polyp x2 5 4:46 PM CDT [facility] FINAL DIAGNOSIS Stomach, polyps x 2, biopsy: - Hyperplastic polyps, 2. 5 4:46 PM CDT [facility] at 1646 CDT GROSS DESCRIPTION Received in one container labeled Ashwini Harmone and stomach polyps x 2 are 2 pieces of red-logan tissue measuring 1.0 and 1.9 cm in greatest dimension. The bases of the 2 polyps are differentially inked blue and black. Each piece is bisected and the tissue is entirely submitted in cassette A1. ELH 5 4:46 PM CDT [facility] MICROSCOPIC DESCRIPTION The slides are labeled [id number] and Ashwini Anderson. Sections show hyperplastic polyps with mild reactive changes, mixed inflammation and surface erosion with granulation tissue. There is no evidence of intestinal (goblet cell) metaplasia, dysplasia or malignancy. Immunohistochemical stain for Helicobacter pylori is negative. 5 4:46 PM CDT [facility] OPERATIVE PROCEDURE 1: Esophagogastroduodenoscop y 2: Colonoscopy 5 4:46 PM CDT [facility] CLINICAL INFORMATION A Gastric Polyps x2 5 4:46 PM CDT [facility] COMMENT Special stain, immunohistochemical, and/or in situ hybridization results are interpreted with controls that demonstrate appropriate staining reactions. Note on use of immunohistochemistry reagents and in situ hybridization probes: These tests were developed and their performance characteristics determined by [facility], Department of Laboratory Medicine. It has [...] part or completely in the following laboratories: [facility], CLIA #[id number] [address] [place] [address] , CLIA #[id number] [address] [place] [address] [facility], CLIA #[id number] [address] [facility] [place] [address] This report was created with the Anc[employer] voice-activated dictation system. Inherent to this system is the possibility of syntax, grammar, punctuation and other errors that could impact the interpretation of the report. If there are interpretative questions about aspects of this report, please contact the performing pathologist. 4:46 PM T [facility] Tissue ENTIRE STOMACH / Unknown Collection / Unknown 05/13/2025 10:58 AM CDT 05/13/2025 2:10 PM CDT Comment:Gastric Polyps x2 Ravindra Jolly MD PATHOLOGY/CYTOLOGY ORDERABLES Fi nal Result [facility] CLIA# [id number] [address] [place] [address] * (ABNORMAL) CBC WITHOUT DIFFERENTIAL (05/13/2025 7:32 AM CDT) WBC 4.2 4.0 - 9.8 K/uL 05/13/2025 7:56 AM CDT [facility] RBC 2.69(L) 3.90 - 4.90 M/uL 05/13/2025 7:56 AM T [facility] HEMOGLOBIN 7.5(L) 11.8 - 14.8 g/dL 05/13/2025 7:56 AM T [facility] HEMATOCRIT 24.4(L) 35.5 - 44.0 % 05/13/2025 7:56 AM [facility] MCV 90.7 82.0 - 99.0 fL 05/13/2025 7:56 AM CDT [facility] MCH 27.9 27.2 - 32.6 pg 05/13/2025 7:56 AM CDT [facility] - [facility] MCHC 30.7(L) 31.5 - 35.5 g/dL 05/13/2025 7:56 AM CDT [facility] - [facility] PLATELETS 140 140 - 350 K/uL 05/13/2025 7:56 AM CDT [facility] MPV 11.2 9.3 - 12.4 fL 05/13/2025 7:56 AM CDT [facility] - [facility] RDW 16.8(H) 11.5 - 14.5 % 05/13/2025 7:56 AM CDT [facility] - . [facility] RDW-STDEV 55.8(H) 37.1 - 48.7 fL 05/13/2025 7:56 AM T [facility] - [facility] Blood Venipuncture / Unknown 05/13/2025 7:32 AM CDT 05/13/2025 7:38 AM CDT us Chon Hernandez MD HEMATOLOGY ORDERABLES Final Resu lt [facility] [facility]# [id number] [address] [facility] [place] [address] * (ABNORMAL) BASIC METABOLIC PANEL (05/13/2025 7:32 AM CDT) Only the most recent of2 resultswithin the time period is included. SODIUM 136 136 - 145 mmol/L 05/13/2025 8:26 AM CDT [facility] POTASSIUM 4.2 3.5 - 5.0 mmol/L 05/13/2025 8:26 AM CDT [facility] CHLORIDE 102 98 - 107 mmol/L 05/13/2025 8:26 AM CDT [facility] CO2 21(L) 22 - 29 mmol/L 05/13/2025 8:26 AM CDT [facility] [facility] CALCIUM 8.9 8.6 - 10.2 mg/dL 05/13/2025 8:26 AM [facility] BUN 32(H) 8 - 23 mg/dL 05/13/2025 8:26 AM [facility] CREATININE 1.79(H) 0.51 - 0.95 mg/dL 05/13/2025 8:26 AM [facility] Comment:The GFR result is no t clinically significant on patients <18 or >70 years of age. GLUCOSE 87 74 - 99 mg/dL 05/13/2025 8:26 AM [facility] GFR 29 mL/min/1.7 3 sq meter 05/13/2025 8:26 AM [facility] Comment:eGFR calculated with 2020 CKD-EPI equation. Vegetarian diet, extremely high or low muscle mass, and may affect results. Cystatin C with Glomerular Filtration Rate is a suitable alternative for these patients. ANION GAP 13 8 - 16 mmol/L 05/13/2025 8:26 AM [facility] Blood Venipuncture / Unknown 05/13/2025 7:32 AM CDT 05/13/2025 7:38 AM CDT Chon Hernandez MD CHEMISTRY ORDERABLES Final Resul t [facility]# [id number] [address] [facility] [place] [address] * (ABNORMAL) HEMOGLOBIN AND HEMATOCRIT (05/12/2025 12:28 PM CDT) HEMOGLOBIN 7.5(L) 11.8 - 14.8 g/dL 05/12/2025 2:41 PM T [facility] [employer] [facility] Comment:Significant change f rom prior result, correlate clinically and redraw if necessary. HEMATOCRIT 24.1(L) 35.5 - 44.0 % 05/12/2025 2:41 PM T [facility] [employer] [facility] Blood Venipuncture / Unknown 05/12/2025 12:28 PM CDT 05/12/2025 2:13 PM CDT Chon Hernandez MD HEMATOLOGY ORDERABLES Final Resu lt [facility] - [facility] CLIA# [id number] [address] [place] [address] * TRANSFUSE RED BLOOD CELLS (05/12/2025 11:06 AM CDT) Only the most recent of2 resultswithin the time period is included. Justino Syed PA-C BLOOD TRANSFUSION ORDERA BLES Final Result * PREPARE RED BLOOD CELLS (05/12/2025 6:21 AM CDT) Only the most recent of2 resultswithin the time period is included. COMPONENT TYPE [id number] [facility] -- [facility] COMPONENT IDENTIFICATION [id number] [facility] -- .[facility] UNIT ABO A [facility] UN[facility] RH POS [facility] CROSSMATCH Compatible [facility] -- .[facility] COMPONENT STATUS Transfused [facility] COMPONENT EXPIRATION DATE/TIME [id number] [facility] -- [facility] COMPONENT CODING SYSTEM 6200 [facility] -- [facility] VOLUME, BLOOD PRODUCT 350 [facility] -- [facility] Other, specify 05/12/2025 6: 21 AM CDT Justino Syed PA-C LAB TRANSFUSION ORDERABL ES Edited Result - Final [facility] -- [facility] CLIA# [id number] [address] [place] [address] * MANUAL DIFFERENTIAL (05/12/2025 3:03 AM CDT) Only the most recent of2 resultswithin the time period is included. PLATELET EST. Consistent w Count 05/12/2025 6:28 AM CDT [facility] ANISOCYTOSIS 1+ /hpf 05/12/2025 6:28 AM CDT [facility] POIKILOCYTES 1+ /hpf 05/12/2025 6:28 AM CDT [facility] POLYCHROMASIA 1+ /hpf 05/12/2025 6:28 AM CDT [facility] HYPOCHROMIA 1+ /hpf 05/12/2025 6:28 AM CDT [facility] OVALOCYTES 1+ /hpf 05/12/2025 6:28 AM CDT [facility] Blood Venipuncture / Unknown 05/12/2025 3:03 AM CDT 05/12/2025 4:39 AM CDT Susan Santos FUNERAL DIRECTOR/EMBALMER HEMATOLOGY ORDERABLES COM Final Result [facility] - [facility] CLIA# [id number] [address] [place] [address] * (ABNORMAL) KAPPA/LAMBDA, FREE LIGHT CHAINS (05/12/2025 3:03 AM CDT) Pathologist [facility] KAPPA FREE LIGHT CHAIN 88.5(H) 3.3 - [...] AM CDT Narrative [facility] - 05/13/2025 12:18 PM CDT Performing Organization Information: Site ID: [place] Name: [facility] Address: [address] [address] Director: Tonny Luna MD Susan Santos NP CHEMISTRY ORDERABLES Final Result [facility] [phone] * (ABNORMAL) CBC WITH DIFFERENTIAL (05/12/2025 3:03 AM CDT) Only the most recent of2 resultswithin the time period is included. WBC 3.5(L) 4.0 - 9.8 K/uL 05/12/2025 6:11 AM T [facility] RBC 2.13(L) 3.90 - 4.90 M/uL 05/12/2025 6:11 AM T [facility] HEMOGLOBIN 6.1(LL) 11.8 - 14.8 g/dL 05/12/2025 6:11 AM T [facility] Comment:Verified by repeat a nalysis. HEMATOCRIT 20.4(L) 35.5 - 44.0 % 05/12/2025 6:11 AM CDT [facility] MCV 95.8 82.0 - 99.0 fL 05/12/2025 6:11 AM CDT [facility] MCH 28.6 27.2 - 32.6 pg 05/12/2025 6:11 AM CDT [facility] MCHC 29.9(L) 31.5 - 35.5 g/dL 05/12/2025 6:11 AM T [facility] RDW 16.1(H) 11.5 - 14.5 % 05/12/2025 6:11 AM [facility] - [facility] RDW-STDEV 56.9(H) 37.1 - 48.7 fL 05/12/2025 6:11 AM [facility] - [facility] PLATELETS 134(L) 140 - 350 K/uL 05/12/2025 6:11 AM [facility] - [facility] MPV 11.3 9.3 - 12.4 fL 05/12/2025 6:11 AM [facility] - [facility] NEUTROPHILS 72 % 05/12/2025 6:11 AM [facility] - [facility] LYMPHOCYTES 18 % 05/12/2025 6:11 AM [facility] MONOCYTES 7 % 05/12/2025 6:11 AM [facility] EOSINOPHILS 2 % 05/12/2025 6:11 AM [facility] - [facility] BASOPHILS 1 % 05/12/2025 6:11 AM [facility] - . [facility] IMMATURE GRANULOCYTES 0 % 05/12/2025 6:11 AM [facility] - [facility] NEUTROPHIL ABSOLUTE 2.52 1.90 - 7.00 K/uL 05/12/2025 6:11 AM [facility] - . [facility] LYMPHOCYTE ABSOLUTE 0.62(L) 0.70 - 4.50 K/uL 05/12/2025 6:11 AM [facility] - . [facility] MONOCYTE ABSOLUTE 0.26 0.10 - 1.30 K/uL 05/12/2025 6:11 AM [facility] - [facility] EOSINOPHIL ABSOLUTE 0.07 0.00 - 0.70 K/uL 05/12/2025 6:11 AM [facility] - [facility] BASOPHILS ABSOLUTE 0.02 0.00 - 0.20 K/uL 05/12/2025 6:11 AM [facility] - . [facility] IMMATURE GRANULOCYTES ABSOLUTE 0.01 0.00 - 0.03 K/uL 05/12/2025 6:11 AM [facility] - . [facility] Blood Venipuncture / Unknown 05/12/2025 3:03 AM CDT 05/12/2025 4:39 AM CDT Susan Santos FUNERAL DIRECTOR/EMBALMER HEMATOLOGY ORDERABLES Melly l Result [facility] [employer] [facility] CLIA# [id number] [address] [place] [address] * IMMUNOFIXATION (05/12/2025 3:02 AM CDT) [facility] IMMUNOFIXATION INTERP See Interpretation Below 05/17/2025 3:58 PM CDT [facility] Comment:Normal polyclonal im munoglobulins INTERPRETED BY: Kat aSnds DO 05/17/2025 3:58 PM CDT [facility] Blood Venipuncture / Unknown 05/12/2025 3:02 AM CDT 05/12/2025 4:38 AM CDT Susan Santos FUNERAL DIRECTOR/EMBALMER CHEMISTRY ORDERABLES Final Result Performing Organization Address City/[facility]/ZIP Co de Phone Number [facility] CLIA # [id number] [address] [facility] [place] [address] * IMMUNOGLOBULINS IGG IGA IGM (05/12/2025 3:02 AM CDT) [facility] IGG 1,072 700 - 1,600 mg/dL 05/12/2025 10:59 AM CDT [facility] IGA 167 70 - 400 mg/dL 05/12/2025 10:59 AM CDT [facility] IGM 58 40 - 230 mg/dL 05/12/2025 10:59 AM CDT [facility] Comment: Performed by [facility]: [address], [place] [address]. Blood Venipuncture / Unknown 05/12/2025 3:02 AM CDT 05/12/2025 4:38 AM CDT us Susan Santos NP CHEMISTRY ORDERABLES Final Result [facility] CLAZEB# [id number] [address] [place] [address] * (ABNORMAL) PROTEIN ELECTROPHORESIS W/REFLEX,SERUM (05/12/2025 3:02 AM CDT) [facility] TOTAL PROTEIN 5.6(L) 6.4 - 8.3 g/dL 05/17/2025 3:58 PM CDT [facility] ALBUMIN SPE 2.97(L) 3.50 - 5.20 g/dL 05/17/2025 3:58 PM CDT [facility] ALPHA 1 GLOBULIN SPE 0.36 0.21 - 0.45 g/dL 05/17/2025 3:58 PM CDT [facility] ALPHA 2 GLOBULIN SPE 0.71 0.50 - 1.01 g/dL 05/17/2025 3:58 PM CDT [facility] BETA GLOBULIN 0.65 0.60 - 1.06 g/dL 05/17/2025 3:58 PM CDT [facility] GAMMA GLOBULIN 0.92 0.60 - 1.33 g/dL 05/17/2025 3:58 PM CDT [facility] SPE INTERP See Interpretation Below 05/17/2025 3:58 PM CDT [facility] Comment:No monoclonal protei n identified. Immunofixation is performed due to a possible abnormal migration in the gamma region-see separate report. INTERPRETED BY: Kat Sands DO 05/17/2025 3:58 PM CDT [facility] Blood Venipuncture / Unknown 05/12/2025 3:02 AM CDT 05/12/2025 4:38 AM CDT Narrative [facility] - 05/17/2025 3:58 PM CDT Immunofixation ordered at [facility] per policy per pathologist. Susan Santos FUNERAL DIRECTOR/EMBALMER CHEMISTRY ORDERABLES Final Result [id number] [address] [facility] [facility] [address] * LACTATE DEHYDROGENASE (05/12/2025 3:02 AM CDT) LD (LACTATE DEHYDROGENASE) 156 135 - 214 U/L 05/12/2025 5:26 AM CDT [facility] Blood Venipuncture / Unknown 05/12/2025 3:02 AM CDT 05/12/2025 4:38 AM CDT Susan Santos FUNERAL DIRECTOR/EMBALMER CHEMISTRY ORDERABLES Final Result Performing Organization Address City/[facility]/ZIP Co de Phone Number [id number] [address] [place] [address] * VERIFICATION BLOOD GROUP (05/11/2025 6:01 PM CDT) Pathologist [facility] ABO GROUP A 05/11/2025 7:01 PM CDT [facility] -- [facility] RH (D) TYPE Positive 05/11/2025 7:01 PM CDT [facility] -- [facility] Blood Venipuncture / Unknown 05/11/2025 6:01 PM CDT 05/11/2025 6:15 PM CDT Vivek Prabhakar MD BLOOD BANK ORDERABLES Final Result [facility] CLIA# [id number] [address] [place] [address] * VITAMIN B12 AND FOLATE (05/11/2025 5:16 PM CDT) VITAMIN B12 589 232 - 1,245 pg/mL 05/12/2025 12:51 AM CDT [facility] Comment:It has been reported that between 5 to 10% of patients with values between 200 and 400 pg/mL may experience neuropsychiatric and hematologic abnormalities due to occult B12 deficiency. Less than 1% of patients with values above 400 pg/mL will have symptoms. FOLATE, SERUM 9.2 >4.5 ng/mL 05/12/2025 12:51 AM CDT [facility] Blood Venipuncture / Unknown 05/11/2025 5:16 PM CDT 05/11/2025 5:33 PM CDT Susan Santos NP CHEMISTRY ORDERABLES Final Result Performing Organization Address [facility]/ZIP Co de Phone Number [facility] CLIA# [id number] [address] [place] [address] * HAPTOGLOBIN (05/11/2025 5:16 PM CDT) HAPTOGLOBIN 172 30 - 200 mg/dL 05/11/2025 6:21 PM CDT [facility] Blood Venipuncture / Unknown 05/11/2025 5:16 PM CDT 05/11/2025 5:33 PM CDT Donald Vegas MD CHEMISTRY ORDERABLES Final Resul t [facility] CLIA# [id number] [address] [address] * (ABNORMAL) IRON, TIBC, AND PERCENT SATURATION (05/11/2025 5:09 PM CDT) IRON 20(L) 37 - 145 ug/dL 05/11/2025 6:04 PM CDT [facility] TIBC 390 250 - 450 ug/dL 05/11/2025 6:04 PM CDT [facility] IRON % SATURATION 5(L) 15 - 50 % 05/11/2025 6:04 PM CDT [facility] TRANSFERRIN 307 200 - 360 mg/dL 05/11/2025 6:04 PM CDT [facility] Blood Venipuncture / Unknown 05/11/2025 5:09 PM CDT 05/11/2025 5:12 PM CDT Donald Vegas MD CHEMISTRY ORDERABLES Final Resul t Performing Organization Address [facility]/ZIP Co de Phone Number [facility] CLIA# [id number] [address] [place] [address] * (ABNORMAL) RETICULOCYTES (05/11/2025 5:09 PM CDT) RETICULOCYTES 3.3(H) 0.7 - 2.9 % 05/11/2025 6:39 PM CDT [facility] IMMATURE RETIC FRACTION 31.6(H) 3.0 - 18.0 % 05/11/2025 6:39 PM CDT [facility] RETICULOCYTE, ABSOLUTE 0.0700 10e6/uL 05/11/2025 6:39 PM CDT [facility] Blood Venipuncture / Unknown 05/11/2025 5:09 PM CDT 05/11/2025 5:12 PM CDT Susan Santos FUNERAL DIRECTOR/EMBALMER HEMATOLOGY ORDERABLES Melly l Result [facility] CLIA# [id number] [address] [place] [address] * TYPE AND SCREEN (05/11/2025 5:09 PM CDT) ABO GROUP A 05/11/2025 6:55 PM CDT [facility] -- [facility] RH (D) TYPE Positive 05/11/2025 6:55 PM CDT [facility] -- [facility] ANTIBODY SCREEN Negative 05/11/2025 6:55 PM CDT [facility] -- .[facility] Blood Venipuncture / Unknown 05/11/2025 5:09 PM CDT 05/11/2025 5:12 PM CDT Donald Vegas MD BLOOD BANK ORDERABLES Edited Res ult - Final Performing Organization Address City/[facility]/ZIP Co de Phone Number [facility] -- [facility] CLIA# [id number] [address] [place] [address] * TSH (05/11/2025 5:09 PM CDT) TSH 1.87 0.27 - 4.20 uIU/mL 05/11/2025 7:34 PM CDT [facility] Blood Venipuncture / Unknown 05/11/2025 5:09 PM CDT 05/11/2025 5:12 PM CDT Susan Santos FUNERAL DIRECTOR/EMBALMER CHEMISTRY ORDERABLES Final Result Performing Organization Address [facility] Co de Phone Number [facility] CLIA# [id number] [address] [place] [address] * (ABNORMAL) COMPREHENSIVE METABOLIC PANEL (05/11/2025 5:09 PM CDT) SODIUM 137 136 - 145 mmol/L 05/11/2025 6:04 PM CDT [facility] - . [facility] POTASSIUM 4.5 3.5 - 5.0 mmol/L 05/11/2025 6:04 PM CDT [facility] - . [facility] CHLORIDE 103 98 - 107 mmol/L 05/11/2025 6:04 PM CDT [facility] - . [facility] CO2 21(L) 22 - 29 mmol/L 05/11/2025 6:04 PM CDT [facility] CALCIUM 9.1 8.6 - 10.2 mg/dL 05/11/2025 6:04 PM [facility] BUN 38(H) 8 - 23 mg/dL 05/11/2025 6:04 PM [facility] CREATININE 1.87(H) 0.51 - 0.95 mg/dL 05/11/2025 6:04 PM [facility] Comment:The GFR result is no t clinically significant on patients <18 or >70 years of age. GLUCOSE 109(H) 74 - 99 mg/dL 05/11/2025 6:04 PM [facility] TOTAL PROTEIN 6.8 6.7 - 8.6 g/dL 05/11/2025 6:04 PM [facility] ALBUMIN 3.9 3.5 - 5.2 g/dL 05/11/2025 6:04 PM [facility] BILIRUBIN TOTAL 0.7 0.0 - 1.1 mg/dL 05/11/2025 6:04 PM [facility] ALKALINE PHOSPHATASE 167(H) 35 - 104 U/L 05/11/2025 6:04 PM [facility] AST 35(H) <33 U/L 05/11/2025 6:04 PM [facility] ALT 16 <34 U/L 05/11/2025 6:04 PM [facility] GFR 28 mL/min/1.7 3 sq meter 05/11/2025 6:04 PM [facility] Comment:eGFR calculated with 2020 CKD-EPI equation. Vegetarian diet, extremely high or low muscle mass, and may affect results. Cystatin C with Glomerular Filtration Rate is a suitable alternative for these patients. ANION GAP 13 8 - 16 mmol/L 05/11/2025 6:04 PM [facility] Blood Venipuncture / Unknown 05/11/2025 5:09 PM CDT 05/11/2025 5:12 PM CDT Narrative [facility] - 05/11/2025 6:04 PM CDT Samples containing indocyanine green cause interferences on Total and/or Direct Bilirubin and must not be measured. 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: [id number] : 1950 Requested By: Order Number: [id number] Reading : Arnaldo Fernandez Measurements Intervals Lamar Rate: 82 P: 44 MA: 156 QRS: -14 QRSD: 94 T: 28 QT: 372 QTc: 435 Interpretive Statements Sinus rhythm Low voltage, precordial leads LVH by voltage Baseline wander in lead(s) V1 Electronically Signed On 05-11-2025 18:11:38 CDT by Arnaldo Fernandez Procedure Note Arnaldo Fernandez MD - 05/11/2025 [facility] [address] [place] [address] Test Date: 2025-05-11 Pat Name: ASHWINI HARMONE Department: 38 Room: Gender: Female [employer] 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: [id number] : 1950 Requested By: Order Number: [id number] Reading : Arnaldo Fernandez Measurements Intervals Lamar Rate: 82 P: 44 MA: 156 QRS: -14 QRSD: 94 T: 28 QT: 372 QTc: 435 Interpretive Statements Sinus rhythm Low voltage, precordial leads LVH by voltage Baseline wander in lead(s) V1 Electronically Signed On 05-11-2025 18:11:38 CDT by Arnaldo Fernandez us Protocol [facility] Emergency MD ECG ORDERABLES Melly sharon Result Performing Organization Address City/State/[facility] Co de Phone Number INTERFACE SYSTEM Refer to clinic/hospital department from Last 3 Months Insurance MEDICARE RAILROAD RETIRED RAILRO[employer] EMPLOYEES RETIRED [employer] EMPLOYEES MEDICARE RAIL[employer] Advance Directives For more information, please contact: [phone] * Full Code (Latest Code Status on File) Date Activated Date Inactivated Comments 05/11/2025 7:08 PM 05/13/2025 7:07 PM Care Teams Ton Cylinder Inspector Relationship Specialty Start Date End Date Dequan Patino MD [address] [place] [address] PCP - General Internal Medicine 09/29/24
[2025-08-05 15:52] LABS: Hematocrit 28.0 % (37.0-47.0); Hemoglobin 8.8 g/dL (12.0-15.0); Mean Corpuscular HGB Conc 31.4 g/dl (32-36); Mean Corpuscular Hemoglobin 31.5 pg (26-34); Mean Corpuscular Volume 100.4 fl (80-100); Platelet Count Result 140 k/mm3 (150-375); Red Blood Count 2.79 M/mm3 (4.2-5.4); White Blood Count 5.7 K/mm3 (4.5-10.0)
[2025-08-05 16:01] LABS: Albumin Level 3.9 g/dL (3.5-5.1); Anion Gap 8 mmol/L (4-12); Blood Urea Nitrogen 41 mg/dL (7-17); Calcium 9.0 mg/dL (8.4-10.2); Carbon Dioxide 24 mmol/L (22-30); Chloride 106 mmol/L (98-107); Estimated Glomerular Filt Rate 22; Glucose 122 mg/dL (65-110); Potassium 4.3 mmol/L (3.4-5.0); Sodium 138 mmol/L (137-145)
[2025-08-05 16:31] LABS: Total Protein Urine Random 8 mg/dL; Ur Ttl Prot Creatinine Ratio 0.15 mg/mg (0-0.20)
[2025-08-05 16:39] LABS: Parathyroid Intact 220.3 pg/mL (14.5-75.2)
== END 2025-08-05 15:23 | disposition home or self-care (01) ==
PROVIDERS: PCP Emergency Medicine; Visit Provider Internal Medicine Nephrology
DX: I12.9 Hypertensive chronic kidney disease with stage 1 through stage 4 chronic kidney disease, or unspecified chronic kidney disease (principal); N18.32 Chronic kidney disease, stage 3b
CPT/HCPCS: 36415; 80069; 82570; 83970; 84156; 85027

== ENCOUNTER 2025-09-27 11:27 | Outpatient (CLI) | payer MEDICARE, SELFPAY ==
[2025-09-27 11:45] LABS: Hematocrit 24.8 % (37.0-47.0); Hemoglobin 7.5 g/dL (12.0-15.0); Immature Granulocyte Percent A 0.3 % (0-0.5); Lymphocytes Absolute Auto 0.68 K/mm3 (0.9-3.2); Mean Corpuscular HGB Conc 30.2 g/dl (32-36); Mean Corpuscular Hemoglobin 30.9 pg (26-34); Mean Corpuscular Volume 102.1 fl (80-100); Nucleated Red Blood Cells Absolute Auto 0.000 K/mm3 (0.0-0.012); Nucleated Red Blood Cells Perc 0.0 % (0.0-0.2); Platelet Count Result 145 k/mm3 (150-375); Red Blood Count 2.43 M/mm3 (4.2-5.4); White Blood Count 5.8 K/mm3 (4.5-10.0)
--- OUTSIDE RECORDS SUMMARY | 2025-09-27 13:07 | XMS_ITS | Clinical Summary ---
Author Organization [facility] Al[place]io [place] Address [address] [place] [address] Care Team Providers Care Welding Robot Operator Name Role Phone Dequan Patino MD Primary Care Provider [phone] Allergies Active Allergy Reactions Criticality Noted Date [...] Encounters Date Type Department Care Team Description 09/14/2025 External Device Data STL ABSTRACTION Provider, Abstract 09/14/2025 External Device Data STL ABSTRACTION Provider, Abstract 08/10/2025 External Device Data STL ABSTRACTION Provider, Abstract 07/20/2025 External Device Data STL ABSTRACTION Provider, Abstract 07/07/2025 External Device Data STL ABSTRACTION Provider, Abstract 07/06/2025 External Device Data STL ABSTRACTION Provider, Abstract [...] Comments DTAP/TDAP/TD VACCINES (1 - Tdap) 1968 PNEUMOCOCCAL VACCINE 50+ YEA RS (1 of 1 - PCV) 1999 ZOSTER VACCINE (1 of 2) 1999 OSTEOPOROSIS SCREENING 2014 RSV VACCINE (60+ or ) (1 - 1-dose 75+ series) 2024 INFLUENZA VACCINE (#1) 2025 COLORECTAL SCREENING Discontinued 05/13/2025, 05/13/20 25 Colorectal Cancer Screening Discontinued FIT-DNA Q 3 years Discontinued FIT/FOBT Q 1 year Discontinued Flex Sig/CT Colonography Q 5 years Discontinued Medical Devices Implanted Type Area Creel Hand Device Identifier Shelf Expiration Date Model / Serial / Lot Clip Endo Resolution 360 235cm [id number] - [id number] Implanted:Qty: 1 on 05/13/2025 by Ravindra Jolly MD at [facility] Clip N/A: Stomach [employer] [id number] 12/30/2027 [id number] / / [id number] Procedures Procedure Name Priority Date/Time Associated Diagnosis Comments COLONOSCOPY REPORT 05/13/2025 11 :37 AM CDT from Last 3 Months or Most Recently Relevant to Health Maintenance Results * COLONOSCOPY REPORT (05/13/2025 11:37 AM CDT) Narrative Procedure Note Ravindra Jolly MD - 05/13/2025 11:37 AM CDT [facility] Endoscopy Patient Name: Ashwini Anderson Procedure Date: [...] 11:37:09 AM Number of Addenda: [address] ; [place] [address] Ravindra Jolly MD GI PROCEDURE ORDERABLES Final Re sult from Last 3 Months or Most Recently Relevant to Health Maintenance Insurance MEDICARE RAILROAD RETIRED [employer] EMPLOYEES RETIRED [employer] EMPLOYEES MEDICARE RAILROAD Advance Directives For more information, please contact: [phone] * Full Code (Latest Code Status on File) Date Activated Date Inactivated Comments 05/11/2025 7:08 PM 05/13/2025 7:07 PM 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
== END 2025-09-27 11:28 | disposition home or self-care (01) ==
PROVIDERS: PCP Emergency Medicine; Visit Provider Emergency Medicine
DX: I10 Essential (primary) hypertension (principal)
CPT/HCPCS: 36415; 85025

== ENCOUNTER 2025-09-29 14:40 | Outpatient (CLI) | payer MEDICARE, SELFPAY ==
[2025-09-29 15:35] LABS: Iron 43 ug/dL (37-170)
[2025-09-29 15:45] LABS: Percent Iron Saturation 11 % (20-50)
[2025-09-29 16:16] LABS: Ferritin 18.30 ng/mL (11.1-264)
--- OUTSIDE RECORDS SUMMARY | 2025-09-29 16:36 | XMS_ITS | Clinical Summary ---
Author Organization [facility] Alirio prince [place] Address [address] [place] [address] Care Team Providers Care Securities Research Analyst Name Role Phone Dequan Patino MD Primary Care Provider [phone] Allergies Active Allergy Reactions Criticality Noted Date [...] Medicare (ACO) A nnual Wellness Visit 1968 PNEUMOCOCCAL VACCINE 50+ YEA RS (1 [...] years Discontinued Medical Devices Implanted Type Area Level Designer Device Identifier Shelf Expiration Date Model / Serial / Lot Clip Endo Resolution 360 235cm [id number] - [id number] Implanted:Qty: 1 on 05/13/2025 by Ravindra Jolly MD at [facility] Clip N/A: Stomach [employer] [id number] 12/30/2027 [id number] / / [id number] Procedures Procedure Name Priority Date/Time Associated Diagnosis Comments COLONOSCOPY REPORT 05/13/2025 11 :37 AM CDT from Last 3 Months or Most Recently Relevant to Health Maintenance Results * COLONOSCOPY REPORT (05/13/2025 11:37 AM CDT) Narrative Procedure Note Ravindra Jolly MD - 05/13/2025 11:37 AM CDT [facility] Endoscopy Patient Name: Ashwini Anderson Procedure [...] of Addenda: [address]; [place] [address] Ravindra Jolly MD GI PROCEDURE ORDERABLES Final Re sult from Last 3 Months or Most Recently Relevant to Health Maintenance Insurance [place] [address] RETIRED [employer] EMPLOYEES RETIRED [employer] EMPLOYEES [place] [address] Advance Directives For more information, please contact: [phone] * Full Code (Latest Code Status on File) Date Activated Date Inactivated Comments 05/11/2025 7:08 PM 05/13/2025 7:07 PM Care Teams Securities Research Analyst Relationship Specialty Start Date End Date Dequan Patino MD [address] [place] [address] PCP - General Internal Medicine 09/29/24
[2025-09-29 17:12] LABS: Vitamin B12 626.0 pg/mL (239-931)
== END 2025-09-29 14:41 | disposition home or self-care (01) ==
LOC: ANHLAB 14:42
PROVIDERS: PCP Emergency Medicine; Visit Provider Emergency Medicine
DX: D64.9 Anemia, unspecified (principal)
CPT/HCPCS: 36415; 82607; 82728; 82746; 83540; 83550

== ENCOUNTER 2025-10-11 10:26 | Outpatient (CLI) | payer MEDICARE, OTHER, SELFPAY ==
[2025-10-11 10:48] LABS: Hematocrit 23.3 % (37.0-47.0); Immature Granulocyte Percent A 0.3 % (0-0.5); Lymphocytes Absolute Auto 0.61 K/mm3 (0.9-3.2); Mean Corpuscular HGB Conc 29.6 g/dl (32-36); Mean Corpuscular Hemoglobin 29.6 pg (26-34); Mean Corpuscular Volume 100.0 fl (80-100); Nucleated Red Blood Cells Absolute Auto 0.000 K/mm3 (0.0-0.012); Nucleated Red Blood Cells Perc 0.0 % (0.0-0.2); Platelet Count Result 149 k/mm3 (150-375); Red Blood Count 2.33 M/mm3 (4.2-5.4); White Blood Count 5.9 K/mm3 (4.5-10.0)
[2025-10-11 11:12] LABS: Hemoglobin 6.9 g/dL (12.0-15.0)
[2025-10-11 11:13] LABS: Helmet Cells Occasional; Hypochromasia 1+; Schistocytes Occasional
== END 2025-10-11 10:27 | disposition home or self-care (01) ==
PROVIDERS: PCP Emergency Medicine; Visit Provider Emergency Medicine
DX: I10 Essential (primary) hypertension (principal); D64.9 Anemia, unspecified
CPT/HCPCS: 36415; 85025; 86850; 86900; 86901

== ENCOUNTER 2025-10-13 09:47 | Outpatient (CLI) | payer MEDICARE, OTHER, SELFPAY ==
--- OUTSIDE RECORDS SUMMARY | 2025-10-13 10:44 | XMS_ITS | Clinical Summary ---
Author Organization [facility] Alirio prince [place] Address [address] [place] [address] Care Team Providers Care Lumber Yard Worker Name Role Phone Dequan Patino MD Primary Care Provider [phone] Allergies Active Allergy Reactions Criticality Noted Date [...] 05/11/2025 3:30 PM CDT Plan of Treatment Upcoming Encounters Date Type Department Care Team (Late st Contact Info) Description 11/02/2025 3:30 PM SPACE BUYER Office Visit [facility] Oncology and Hematology - S[address] [facility] [address] [place] [address] Lazaro Jeter MD [address] [facility] [address] [place] [address] Health Maintenance Due Date Last Done Comments [...] years Discontinued Medical Devices Implanted Type Area White Metal Caster Device Identifier Shelf Expiration Date Model / Serial / Lot Clip Endo Resolution 360 235cm [id number] - [id number] Implanted:Qty: 1 on 05/13/2025 by Ravindra Jolly MD at [facility] Clip N/A: Stomach [employer] [id number] 12/30/2027 [id number] / / [id number] Procedures Procedure Name Priority Date/Time Associated Diagnosis Comments COLONOSCOPY REPORT 05/13/2025 11 :37 AM CDT from Last 3 Months or Most Recently Relevant to Health Maintenance Results * COLONOSCOPY REPORT (05/13/2025 11:37 AM CDT) Narrative Procedure Note Ravindra Jolly MD - 05/13/2025 11:37 AM CDT [facility] Endoscopy Patient Name: Ashwini Anderson Procedure [...] AM Number of Addenda: [address]; [place] [address] Ravindra Jolly MD GI PROCEDURE ORDERABLES Final Re sult from Last 3 Months or Most Recently Relevant to Health Maintenance Insurance MEDICARE RAILROAD RETIRED [employer] EMPLOYEES RETIRED [employer] EMPLOYEES MEDICARE RAILROAD Advance Directives For more information, please contact: [phone] * Full Code (Latest Code Status on File) Date Activated Date Inactivated Comments 05/11/2025 7:08 PM 05/13/2025 7:07 PM Care Teams Lumber Yard Worker Relationship Specialty Start Date End Date Dequan Patino MD [address] [address] PCP - General Internal Medicine 09/29/24
[2025-10-13 11:42] LABS: Hematocrit 26.3 % (37.0-47.0); Hemoglobin 8.0 g/dL (12.0-15.0); Immature Granulocyte Percent A 0.4 % (0-0.5); Lymphocytes Absolute Auto 0.50 K/mm3 (0.9-3.2); Mean Corpuscular HGB Conc 30.4 g/dl (32-36); Mean Corpuscular Hemoglobin 30.1 pg (26-34); Mean Corpuscular Volume 98.9 fl (80-100); Nucleated Red Blood Cells Absolute Auto 0.000 K/mm3 (0.0-0.012); Nucleated Red Blood Cells Perc 0.0 % (0.0-0.2); Platelet Count Result 153 k/mm3 (150-375); Red Blood Count 2.66 M/mm3 (4.2-5.4); White Blood Count 5.3 K/mm3 (4.5-10.0)
== END 2025-10-13 09:48 | disposition home or self-care (01) ==
PROVIDERS: PCP Emergency Medicine; Visit Provider Emergency Medicine
DX: D64.9 Anemia, unspecified (principal)
CPT/HCPCS: 36415; 85025

== ENCOUNTER 2025-11-01 09:21 | Outpatient (CLI) | payer MEDICARE, OTHER, SELFPAY ==
[2025-11-01 10:08] LABS: Hematocrit 27.4 % (37.0-47.0); Hemoglobin 8.3 g/dL (12.0-15.0); Immature Granulocyte Percent A 0.3 % (0-0.5); Lymphocytes Absolute Auto 0.77 K/mm3 (0.9-3.2); Mean Corpuscular HGB Conc 30.3 g/dl (32-36); Mean Corpuscular Hemoglobin 29.6 pg (26-34); Mean Corpuscular Volume 97.9 fl (80-100); Nucleated Red Blood Cells Absolute Auto 0.000 K/mm3 (0.0-0.012); Nucleated Red Blood Cells Perc 0.0 % (0.0-0.2); Platelet Count Result 152 k/mm3 (150-375); Red Blood Count 2.80 M/mm3 (4.2-5.4); White Blood Count 5.9 K/mm3 (4.5-10.0)
--- OUTSIDE RECORDS SUMMARY | 2025-11-01 10:11 | XMS_ITS | Clinical Summary ---
Author Organization [facility] [place]irio [place] Address [address] [place] [address] Care Team Providers Care Label Drier Name Role Phone Dequan Patino MD Primary Care Provider [phone] Allergies Active Allergy Reactions Criticality Noted Date [...] Encounters Date Type Department Care Team Description 10/13/2025 Orders Only [facility] Oncology and Hematology - [address] [place] [address] Lazaro Jeter MD Chronic anemia (Primary Dx) 09/14/2025 External Device Data STL ABSTRACTION Provider, [...] Care Team (Late st Contact Info) Description 11/08/2025 8:[address] LIGHT LAMP CLEANER Office Visit [facility] Oncology and Hematology - Siva [address] [facility] [address] [place] [address] Lazaro Jeter MD [address] [facility] [address] [place] [address] Health Maintenance Due Date Last [...] years Discontinued Medical Devices Implanted Type Area Renal Medicine Specialist Device Identifier Shelf Expiration Date Model / Serial / Lot Clip Endo Resolution 360 235cm [id number] - [id number] Implanted:Qty: 1 on 05/13/2025 by Ravindra Jolly MD at [facility] Clip N/A: Stomach [employer] [id number] 12/30/2027 [id number] / / [id number] Procedures Procedure Name Priority Date/Time Associated Diagnosis [...] of Addenda: [address]; [place] [address] Ravindra Jolly MD GI PROCEDURE ORDERABLES Final Re sult from Last 3 Months or Most Recently Relevant to Health Maintenance Insurance MEDICARE RAILROAD RETIRED [employer] EMPLOYEES RETIRED [employer] EMPLOYEES MEDICARE RAILROAD Advance Directives For more information, please contact: [phone] * Full Code (Latest Code Status on File) Date Activated Date Inactivated Comments 05/11/2025 7:08 PM 05/13/2025 7:07 PM Care Teams Label Drier Relationship Specialty Start Date End Date Dequan Patino MD [address] [phone] PCP - General Internal Medicine 09/29/24
[2025-11-01 10:27] LABS: Iron 47 ug/dL (37-170)
[2025-11-01 10:29] LABS: Alanine Aminotransferase 22 U/L (6-35); Albumin Level 3.8 g/dL (3.5-5.1); Alkaline Phosphatase 146 U/L (38-126); Anion Gap 7 mmol/L (4-12); Aspartate Amino Transferase 50 U/L (14-36); Bilirubin,Total 1.0 mg/dL (0.2-1.3); Blood Urea Nitrogen 32 mg/dL (7-17); Calcium 9.0 mg/dL (8.4-10.2); Carbon Dioxide 21 mmol/L (22-30); Chloride 110 mmol/L (98-107); Estimated Glomerular Filt Rate 32; Glucose 110 mg/dL (65-110); Potassium 4.3 mmol/L (3.4-5.0); Sodium 138 mmol/L (137-145); Total Protein 7.0 g/dL (6.3-8.2)
[2025-11-01 10:36] LABS: Percent Iron Saturation 14 % (20-50)
[2025-11-01 10:47] LABS: Immunoglobulin A 190 mg/dL (70-400); Immunoglobulin G 1201 mg/dL (700-1600); Immunoglobulin M 69 mg/dL (40-230)
[2025-11-01 11:08] LABS: Ferritin 18.80 ng/mL (11.1-264)
[2025-11-02 12:08] LABS: Albumin 3.4 g/dL (2.9-4.4); Alpha-1-Globulin 0.4 g/dL (0.0-0.4); Alpha-2-Globulin 0.7 g/dL (0.4-1.0); Gamma Globulin 1.1 g/dL (0.4-1.8)
[2025-11-02 14:08] LABS: Free Lambda Lt Chains, Serum 46.0 mg/L (5.7-26.3); Kappa/Lambda Ratio, Serum 2.38 (0.26-1.65)
== END 2025-11-01 09:22 | disposition home or self-care (01) ==
PROVIDERS: PCP Emergency Medicine; Visit Provider Internal Medicine Hematology & Oncology
DX: D64.9 Anemia, unspecified (principal)
CPT/HCPCS: 36415; 80053; 82728; 82784; 83521; 83540; 83550; 84155; 84165; 85025

== ENCOUNTER 2025-11-16 12:03 | Outpatient (CLI) | payer MEDICARE, OTHER, SELFPAY ==
--- NOTE | ~2025-11-16 | US_ITS ---
US abdomen limited Indication: K42.9 - Umbilical hernia without obstruction or gangrene Comparison: None Technique: Beckman-scale and color Doppler images were obtained. Findings: Correlating with the palpable area there is a large complex cystic focus measuring 4 x 1.6 x 2.6 cm, there is no peristalsis identified with gross defect in the abdominal wall. IMPRESSION: Nonspecific complex appearing cystic focus. The appearance is not typical for hernia. Abscess is not excluded. Contrast-enhanced CT is recommended Reviewed, dictated and finalized at location P. CTOR HR COMMUNICATIONS IMPRESSION: Nonspecific complex appearing cystic focus. The appearance is not t ypical for hernia. Abscess is not excluded. Contrast-enhanced CT is recommended
== END 2025-11-16 12:04 | disposition home or self-care (01) ==
LOC: MICIMG 12:04
PROVIDERS: PCP Emergency Medicine; Visit Provider Emergency Medicine
DX: K42.9 Umbilical hernia without obstruction or gangrene (principal)
CPT/HCPCS: 76705